=== PATIENT | male | born 1930 | race Caucasian/White ===

== ENCOUNTER 2016-07-22 11:26 | Outpatient (CLI) | payer MEDICARE | END 2016-07-22 11:27 | disposition home or self-care (01) | DX: I26.99 Other pulmonary embolism without acute cor pulmonale (principal); Z79.01 Long term (current) use of anticoagulants ==

== ENCOUNTER 2016-08-05 10:04 | Outpatient (CLI) | payer MEDICARE | END 2016-08-05 10:05 | disposition home or self-care (01) | DX: I26.99 Other pulmonary embolism without acute cor pulmonale (principal); Z79.01 Long term (current) use of anticoagulants ==

== ENCOUNTER 2016-08-19 09:10 | Outpatient (CLI) | payer MEDICARE | END 2016-08-19 09:11 | disposition home or self-care (01) | DX: I26.99 Other pulmonary embolism without acute cor pulmonale (principal); Z79.01 Long term (current) use of anticoagulants ==

== ENCOUNTER 2016-09-08 13:18 | Emergency (ER) | payer MEDICARE ==
[2016-09-08] MEDS ORDERED: ACETAMINOPHEN 325 MG TABLET PO STA (16:36)
[2016-09-08] MEDS ORDERED: ACETAMINOPHEN 325 MG TABLET PO ONE (16:55)
== END 2016-09-08 19:42 | disposition home or self-care (01) ==
DX: G45.9 Transient cerebral ischemic attack, unspecified (principal); I10 Essential (primary) hypertension; Z86.711 Personal history of pulmonary embolism; H40.9 Unspecified glaucoma; Z79.01 Long term (current) use of anticoagulants; Z79.899 Other long term (current) drug therapy
CPT/HCPCS: 36415; 70544; 70547; 70551; 80048; 85025; 85610; 85730; 93005; 93010; 99284; A9270

== ENCOUNTER 2016-09-10 10:02 | Outpatient (CLI) | payer MEDICARE | END 2016-09-10 10:03 | disposition home or self-care (01) | DX: I26.99 Other pulmonary embolism without acute cor pulmonale (principal); Z79.01 Long term (current) use of anticoagulants ==

== ENCOUNTER 2016-09-16 10:59 | Outpatient (CLI) | payer MEDICARE | END 2016-09-16 11:00 | disposition home or self-care (01) | DX: I26.99 Other pulmonary embolism without acute cor pulmonale (principal); Z79.01 Long term (current) use of anticoagulants ==

== ENCOUNTER 2016-09-16 13:49 | Outpatient (CLI) | payer MEDICARE | END 2016-09-16 13:50 | disposition home or self-care (01) | DX: G45.9 Transient cerebral ischemic attack, unspecified (principal); R47.81 Slurred speech; I77.810 Thoracic aortic ectasia; I26.99 Other pulmonary embolism without acute cor pulmonale; Z79.01 Long term (current) use of anticoagulants ==

== ENCOUNTER 2016-10-09 08:00 | Outpatient (CLI) | payer MEDICARE | END 2016-10-09 08:01 | disposition home or self-care (01) | DX: L03.031 Cellulitis of right toe (principal) ==

== ENCOUNTER 2016-10-14 10:44 | Outpatient (CLI) | payer MEDICARE | END 2016-10-14 10:45 | disposition home or self-care (01) | DX: I26.99 Other pulmonary embolism without acute cor pulmonale (principal); Z79.01 Long term (current) use of anticoagulants ==

== ENCOUNTER 2016-10-28 08:40 | Outpatient (CLI) | payer MEDICARE | END 2016-10-28 08:41 | disposition home or self-care (01) | DX: I26.99 Other pulmonary embolism without acute cor pulmonale (principal); Z79.01 Long term (current) use of anticoagulants ==

== ENCOUNTER 2016-11-09 12:00 | Emergency (ER) | payer MEDICARE ==
[2016-11-09] MEDS ORDERED: ONDANSETRON 4 MG/2 ML VIAL IVP STA (12:44)
[2016-11-09] MEDS ORDERED: HYDROmorphone 1 MG/ML SYRINGE IVP STA ×2 (12:44→15:06)
[2016-11-09] MEDS ORDERED: SODIUM CHLORIDE 0.9% 1,000 ML IV ONE (12:44)
[2016-11-09] MEDS ORDERED: ONDANSETRON 4 MG/2 ML VIAL ONE (12:59)
[2016-11-09] MEDS ORDERED: HYDROmorphone 1 MG/ML SYRINGE ONE ×2 (12:59→14:55)
[2016-11-09] MEDS ORDERED: WARFARIN 5 MG TABLET PO STA (14:30)
[2016-11-09] MEDS ORDERED: ASPIRIN CHEW 81 MG TABLET PO STA (14:30)
== END 2016-11-09 16:00 | disposition home or self-care (01) ==
DX: R47.01 Aphasia (principal); R51 Headache; G45.9 Transient cerebral ischemic attack, unspecified; I10 Essential (primary) hypertension; Z86.711 Personal history of pulmonary embolism; Z79.01 Long term (current) use of anticoagulants
CPT/HCPCS: 36415; 70450; 80053; 83690; 83735; 85025; 85610; 96374; 96375; 96376; 99284; A9270; J1170

== ENCOUNTER 2016-11-13 08:29 | Outpatient (CLI) | payer MEDICARE ==
[2016-11-13 14:38] LABS: CHOL/HDL RATIO 3.5 (<5.0); CHOLESTEROL 170 mg/dL; HDL CHOLESTEROL 48 mg/dL; LDL/HDL RATIO 1.9 (<3.6); TRIGLYCERIDES 156 mg/dL; VLDL CHOLESTEROL 31 mg/dL
== END 2016-11-13 08:30 | disposition home or self-care (01) ==
LOC: LAB.R 08:29
PROVIDERS: ATTEND Internal Medicine
DX: Z86.73 Personal history of transient ischemic attack (TIA), and cerebral infarction without residual deficits (principal)
CPT/HCPCS: 80061; 85651; 86140

== ENCOUNTER 2016-12-03 09:16 | Outpatient (CLI) | payer MEDICARE | END 2016-12-03 09:17 | disposition home or self-care (01) | DX: I26.99 Other pulmonary embolism without acute cor pulmonale (principal); Z79.01 Long term (current) use of anticoagulants ==

== ENCOUNTER 2016-12-06 15:00 | Emergency (ER) | payer MEDICARE ==
[2016-12-06 15:10] VITALS: BP 160/84
[2016-12-06] MEDS ORDERED: TRANEXAMIC ACID 1,000 MG/10 ML VIAL ONE (15:21)
--- NOTE | 2016-12-06 15:34 | ED Physician Documentation ---
PD HPI HEENT FB - Chief complaint Chief Complaint: Heent - History obtained from History obtained from: Patient, Family - History of Present Illness Location: Right ear (86yo old gentleman on warfarin was using a Q-tip earlier today and developed profuse bleeding from the right ear.) Review of Systems Ears: reports: Loss of hearing, Ear pain, Drainage/discharge Nose: denies: Rhinorrhea / runny nose, Congestion, Epistaxis Throat: denies: Sore throat PD PAST MEDICAL HISTORY - Past Medical History Cardiovascular: Hypertension, Pulmonary embolism Respiratory: None Neuro: None Endocrine/Autoimmune: None GI: None : None HEENT: Glaucoma Psych: None Musculoskeletal: None Derm: None - Past Surgical History HEENT: Cataracts - Present Medications Home Medications: Ambulatory Orders Medication Instructions Recorded Confirmed Acetaminophen [Tylenol] 500 mg PO PRN PRN 07/29/16 11/18/16 Allopurinol 300 mg PO DAILY 07/29/16 11/18/16 Calcium Citrate/Vitamin D3 600 mg PO DAILY 07/29/16 11/18/16 [Calcium Citrate - Vit D Caplet] Potassium Citrate [Potassium 10 mg PO DAILY 07/29/16 11/18/16 Citrate ER] Psyllium Husk [Metamucil] 2 cap PO DAILY 07/29/16 11/18/16 Warfarin [Coumadin] 7.5 mg PO DAILY 07/29/16 11/18/16 Lisinopril 10 mg PO BID 09/23/16 11/18/16 Metoprolol Succinate [Toprol Xl] 50 mg PO DAILY 09/23/16 11/18/16 Aspirin [Aspirin EC] 81 mg PO DAILY 11/18/16 11/18/16 Atorvastatin [Lipitor] 20 mg PO DAILY 11/18/16 11/18/16 Neomycin/Polymyx/Hc Otic Drops 4 drops OT TID #1 bottle 12/06/16 [Cortisporin Ear Susp] - Allergies Allergies/Adverse Reactions: Allergies Allergy/AdvReac Type Severity Reaction Status Date / Time No Known Drug Allergies Allergy Verified 09/08/16 13:42 - Social History Does the pt smoke?: No Smoking Status: Never smoker PD ED PE NORMAL - Vitals Vital signs reviewed: Yes - General General: Alert and oriented X 3, No acute distress - HEENT HEENT: Other (Initially I am unable to view the right TM do to blood and clots in the canal. After flushing I am able to ascertain that he has quite a bit of earwax but the tympanic membrane is normal without hemotympanum or perforation. He did abrade the canal. After flushing I instilled some TXA to prevent further bleeding.) - Neck Neck: Supple, no meningeal sign, No bony TTP - Neuro Neuro: Alert and oriented X 3, Normal speech - Psych Psych: Normal mood, Normal affect Results - Vitals Vitals: Vital Signs - 24 hr 12/06/16 15:06 Temperature 36.6 C Heart Rate 72 Respiratory 16 Rate Blood Pressure 160/84 H O2 Saturation 99 Oxygen O2 Source Room air Departure - Departure Disposition: Home, Self Care Clinical Impression: Supratherapeutic INR Ear canal abrasion Qualifiers: Encounter type: initial encounter Laterality: right Qualified Code(s): S00.411A - Abrasion of right ear, initial encounter Condition: Good Record reviewed to determine appropriate education?: Yes Prescriptions: Neomycin/Polymyx/Hc Otic Drops [Cortisporin Ear Susp] 4 drops OT TID #1 bottle Comments: Your INR today is 3.4, skip your warfarin tonight. Your blood pressure was elevated today on check in to the emergency department. This does not mean that you have hypertension, it is a common phenomenon to check into the emergency department and have elevated blood pressure. I recommend that you see your primary care physician within the week to have it rechecked when you're feeling better.
== END 2016-12-06 15:44 | disposition home or self-care (01) ==
LOC: ED 15:00
DX: S00.411A Abrasion of right ear, initial encounter (principal); X58.XXXA Exposure to other specified factors, initial encounter; Y93.E8 Activity, other personal hygiene; I26.99 Other pulmonary embolism without acute cor pulmonale; I10 Essential (primary) hypertension; Z79.01 Long term (current) use of anticoagulants; Z79.82 Long term (current) use of aspirin; R03.0 Elevated blood-pressure reading, without diagnosis of hypertension
CPT/HCPCS: 85610; 99283

== ENCOUNTER 2016-12-17 09:37 | Outpatient (CLI) | payer MEDICARE | END 2016-12-17 09:38 | disposition home or self-care (01) | LOC: LAB 09:37 | PROVIDERS: ATTEND Internal Medicine | DX: I26.99 Other pulmonary embolism without acute cor pulmonale (principal); Z79.01 Long term (current) use of anticoagulants | CPT/HCPCS: 85610 ==

== ENCOUNTER 2016-12-21 08:40 | Outpatient (CLI) | payer MEDICARE | END 2016-12-21 08:41 | disposition home or self-care (01) | LOC: LAB 08:40 | PROVIDERS: ATTEND Internal Medicine | DX: I26.99 Other pulmonary embolism without acute cor pulmonale (principal); Z86.73 Personal history of transient ischemic attack (TIA), and cerebral infarction without residual deficits; E78.2 Mixed hyperlipidemia; Z79.01 Long term (current) use of anticoagulants; Z79.899 Other long term (current) drug therapy | CPT/HCPCS: 36415; 80061; 84450; 84460; 85610; 85651; 86140 ==

== ENCOUNTER 2017-01-04 13:49 | Outpatient (CLI) | payer MEDICARE | END 2017-01-04 13:50 | disposition home or self-care (01) | LOC: LAB 13:49 | PROVIDERS: ATTEND Internal Medicine | DX: I26.99 Other pulmonary embolism without acute cor pulmonale (principal); Z79.01 Long term (current) use of anticoagulants | CPT/HCPCS: 85610 ==

== ENCOUNTER 2017-01-07 14:40 | Emergency (ER) | payer MEDICARE ==
--- NOTE | 2017-01-07 15:13 | ED Physician Documentation ---
PD HPI FOCAL NEURO - Stated complaint Stated Complaint: TIA SYMPTOMS - Chief complaint Chief Complaint: Neuro - History obtained from History obtained from: Patient - History of Present Illness Timing - onset: How many hours ago (2 hours ago at 12:30, felt some confusion, trouble concentrating, and felt difficulty talking (processing words). No focal weakness. Symptoms accompanied, followed by headache frontal. Has had similar in the past, seen by Neurology and has had MRi/MRA brain and MRA neck just few months ago with an episode. Is on COumadin for it.), Today Timing - duration: Hours (lasted abotu 1 1/2 hours, which he says is shorter than the other event he has had.) Timing - details: Abrupt onset, Now resolved Severity of deficit: Mild Weakness: No: Face, Arm, Hand, Leg, Foot, Right, Left, Other Numbness: No: Face, Arm, Hand, Leg, Foot, Right, Left, Other Associated symptoms: Headache, Other (feeling confusion and difficulty concentrating, speaking). No: Nausea / vomiting, Syncope, Head injury, Chest pain, Neck pain, Fever Contributing factors: positive: Anticoagulated. negative: Vascular dz, Atrial fibrillation Baseline status: positive: A&OX3, ambulatory, indep Similar symptoms before: No diagnosis (TIA) Review of Systems Constitutional: denies: Fever, Chills Nose: denies: Rhinorrhea / runny nose, Congestion Throat: denies: Sore throat Cardiac: denies: Chest pain / pressure, Palpitations Respiratory: denies: Dyspnea, Cough GI: denies: Abdominal Pain, Nausea, Vomiting : denies: Dysuria, Frequency Skin: denies: Rash, Lesions Musculoskeletal: denies: Neck pain, Back pain Neurologic: reports: Difficulty speaking, Confused, Headache. denies: Focal weakness, Numbness, Near syncope, Altered mental status, Head injury, LOC Psychiatric: denies: Depressed, Anxiety, Insomnia PD PAST MEDICAL HISTORY - Past Medical History Cardiovascular: Hypertension, Pulmonary embolism Respiratory: None Neuro: None Endocrine/Autoimmune: None GI: None : None HEENT: Glaucoma Psych: None Musculoskeletal: None Derm: None - Past Surgical History Past Surgical History: Yes HEENT: Cataracts - Present Medications Home Medications: Ambulatory Orders Medication Instructions Recorded Confirmed Acetaminophen [Tylenol] 500 mg PO PRN PRN 07/29/16 01/07/17 Allopurinol 300 mg PO DAILY 07/29/16 01/07/17 Calcium Citrate/Vitamin D3 600 mg PO DAILY 07/29/16 01/07/17 [Calcium Citrate - Vit D Caplet] Potassium Citrate [Potassium 10 mg PO DAILY 07/29/16 01/07/17 Citrate ER] Psyllium Husk [Metamucil] 2 cap PO DAILY 07/29/16 01/07/17 Warfarin [Coumadin] 7.5 mg PO DAILY 07/29/16 01/07/17 Lisinopril 10 mg PO BID 09/23/16 01/07/17 Metoprolol Succinate [Toprol Xl] 50 mg PO DAILY 09/23/16 01/07/17 Atorvastatin [Lipitor] 20 mg PO DAILY 11/18/16 01/07/17 Neomycin/Polymyx/Hc Otic Drops 4 drops OT TID #1 bottle 12/06/16 01/07/17 [Cortisporin Ear Susp] Brimonidine 0.15% Ophth Drops 1 drops EACHEYE DAILY 01/07/17 01/07/17 [Alphagan P 0.15% Ophth Drops] Latanoprost 1 drops EACHEYE DAILY 01/07/17 01/07/17 - Allergies Allergies/Adverse Reactions: Allergies Allergy/AdvReac Type Severity Reaction Status Date / Time No Known Drug Allergies Allergy Verified 09/08/16 13:42 - Social History Does the pt smoke?: No Smoking Status: Never smoker Does the pt drink ETOH?: No Does the pt have substance abuse?: No PD ED PE NORMAL - Vitals Vital signs reviewed: Yes - General General: Alert and oriented X 3, No acute distress, Well developed/nourished, Other - HEENT HEENT: Atraumatic, PERRL, EOMI, Ears normal, Pharynx benign - Neck Neck: Supple, no meningeal sign, No adenopathy, Thyroid normal - Cardiac Cardiac: RRR, No murmur - Respiratory Respiratory: Clear bilaterally - Abdomen Abdomen: Soft, Non tender - Back Back: No CVA TTP - Derm Derm: Normal color, Warm and dry, No rash - Extremities Extremities: No tenderness to palpate, Normal ROM s pain, No edema, No calf tenderness / cord - Neuro Neuro: Alert and oriented X 3, fuel operator 2-12 intact, No motor deficit, No sensory deficit, Normal speech, Other - Psych Psych: Normal mood, Normal affect NIHSS - Level of Consciousness Level of consciousness: (0) Alert, Keenly responsive LOC Questions: (0) Answers both Q's correct LOC Commands: (0) Performs both correctly - Gaze Best Gaze: (0) Normal - Visual Visual: (0) No loss - Facial Palsy Facial Palsy: (0) Normal, symmetrical movement - Motor Arms (both separate) Motor Arm (right): (0) No drift Motor Arm (left): (0) No drift - Motor Legs (both separate) Motor Leg (right): (0) No drift Motor Leg (left): (0) No drift - Limb Ataxia Limb Ataxia: (0) Absent - Sensory Sensory: (0) Normal - Best Language Best Language: (0) No aphasia - Dysarthria Dysarthria: (0) Normal - Extinction and Inattention (formally neg Extinction and inattention: (0) No abnormality - Total Score/Results Total Score/Result: 0 Results - Vitals Vitals: Vital Signs - 24 hr 01/07/17 16:23 Heart Rate 57 L Respiratory 16 Rate Blood Pressure 166/87 H O2 Saturation 99 Oxygen O2 Source Room air - Labs Labs: Laboratory Tests 01/07/17 01/07/17 15:00 15:00 PT 28.0 H INR 2.5 H Sodium 130 L Potassium 4.2 Chloride 94 L Carbon Dioxide 30 Anion Gap 6.0 BUN 19 Creatinine 1.0 Estimated GFR (MDRD) 71 L Glucose 88 Calcium 8.9 Total Bilirubin 0.8 AST 24 ALT 28 Alkaline Phosphatase 81 Total Protein 6.0 L Albumin 4.1 Globulin 1.9 L Albumin/Globulin Ratio 2.2 Lipase 23 - Rads (name of study) head CT Radiology: Prelim report reviewed (no acute process, no bleeding) PD MEDICAL DECISION MAKING - ED course Complexity details: considered differential (TIA symptoms and has had recent ( September/October) MRA brain and neck without demonstrable lesions nor stenoses. He is on COumadin per his Neurologist. I don't see further workup at this time, and he would prefer to go home. Main result is that his symptoms are not related to bleed. ), d/w patient, d/w family () Departure - Departure Disposition: 01 Home, Self Care Clinical Impression: TIA (transient ischemic attack) Qualifiers: Transient cerebral ischemia type: unspecified Qualified Code(s): G45.9 - Transient cerebral ischemic attack, unspecified Condition: Stable Record reviewed to determine appropriate education?: Yes Instructions: ED Transient Ischemic Attack Follow-Up: Enmanuel Reyes MD [Primary Care Provider] - Comments: Continue usual medications. Drink adequate fluids. Your BP is slightly high today; recheck it in next few days to see if back to your normal. Return if recurrent symptoms. Discharge Date/Time: 01/07/17 16:50
[2017-01-07] MEDS ORDERED: ACETAMINOPHEN 325 MG TABLET PO STA (15:38)
[2017-01-07] MEDS ORDERED: ACETAMINOPHEN 325 MG TABLET PO ONE (15:42)
[2017-01-07 16:04] LABS: INR 2.5 (0.8-1.2)
[2017-01-07 16:05] LABS: ALBUMIN/GLOBULIN RATIO 2.2 (1.0-2.2); BILIRUBIN,TOTAL 0.8 mg/dL (0.2-1.0); CALCIUM 8.9 mg/dL (8.5-10.3); POTASSIUM 4.2 mmol/L (3.5-5.0)
--- NOTE | 2017-01-07 16:10 | CT Preliminary Report ---
Exam: CT Head W/O IMPRESSION: Generalized age-related chronic changes without evidence of acute intracranial abnormalit y when compared with 11/09/2016. [facility] SITE ID: [id number]
--- NOTE | 2017-01-07 16:12 | CT Report ---
EXAM: CT HEAD EXAM DATE: 01/07/2017 03:55 PM. CLINICAL HISTORY: TIA symptoms with headache; on coumadin. COMPARISON: 11/09/2016 TECHNIQUE: Multiaxial CT images were obtained from the foramen magnum to the vertex. IV contrast: Non e. Reformats: Coronal. In accordance with CT protocol optimization, one or more of the following dose reduction techniques w ere utilized for this exam: automated exposure control, adjustment of mA and/or KV based on patient s ize, or use of iterative reconstructive technique. FINDINGS: Parenchyma: No intraparenchymal hemorrhage. No evidence of mass, midline shift, or CT findings of acu te infarction. Meyers-white differentiation is distinct. Extraaxial Spaces: Normal for age. No subdural or epidural collections identified. Extensive left ten torial calcification unchanged Ventricles: The ventricles and cortical sulci are enlarged, consistent with age-related tissue loss. Sinuses: Membrane thickening bilateral ethmoid sinuses Bones: No evidence of fracture or calvarial defect. Other: Diffuse chronic microangiopathic white matter changes are evident. IMPRESSION: Generalized age-related chronic changes without evidence of acute intracranial abnormalit y when compared with 11/09/2016. [facility] Referring Provider Line: [phone] SITE ID: [id number]
[2017-01-07 16:24] VITALS: BP 166/87
== END 2017-01-07 16:50 | disposition home or self-care (01) ==
LOC: ED 14:40
DX: G45.9 Transient cerebral ischemic attack, unspecified (principal); I10 Essential (primary) hypertension; Z86.711 Personal history of pulmonary embolism; Z79.01 Long term (current) use of anticoagulants
CPT/HCPCS: 36415; 70450; 80053; 83690; 85610; 99284; A9270

== ENCOUNTER 2017-01-27 08:58 | Outpatient (CLI) | payer MEDICARE | END 2017-01-27 08:59 | disposition home or self-care (01) | LOC: LAB 08:58 | PROVIDERS: ATTEND Internal Medicine | DX: I26.99 Other pulmonary embolism without acute cor pulmonale (principal); Z79.01 Long term (current) use of anticoagulants | CPT/HCPCS: 85610 ==

== ENCOUNTER 2017-02-02 16:52 | Outpatient (CLI) | payer MEDICARE ==
--- NOTE | 2017-02-03 00:18 | Ultrasound Report ---
EXAM: BILATERAL LOWER EXTREMITY VENOUS ULTRASOUND EXAM DATE: 02/02/2017 05:52 PM. CLINICAL HISTORY: Pulmonary emboli COMPARISON: None. TECHNIQUE: Real-time sonographic vascular imaging was performed by the counter clerk through the lower extremities utilizing both color-flow and Doppler spectral analysis. Multiple sales representatives static i mages were saved for review. FINDINGS: Right: Common Femoral Vein (CFV): Normal. CFV-GSV Junction: Normal. Profunda Femoral Vein (PFV): Normal. Femoral Vein (FV) Prox: Normal. Femoral Vein (FV) Mid: Normal. Femoral Vein (FV) Dist: Normal. Popliteal Vein: Normal. Posterior Tibial Veins: Normal. Peroneal Veins: Normal. Left: Common Femoral Vein (CFV): Normal. CFV-GSV Junction: Normal. Profunda Femoral Vein (PFV): Normal. Femoral Vein (FV) Prox: Normal. Femoral Vein (FV) Mid: Normal. Femoral Vein (FV) Dist: Normal. Popliteal Vein: Normal. Posterior Tibial Veins: Normal. Peroneal Veins: Normal. Other: None. IMPRESSION: No evidence for deep venous thrombosis bilaterally. [facility] Referring Provider Line: [phone] SITE ID: [id number]
== END 2017-02-02 16:53 | disposition home or self-care (01) ==
LOC: DI 16:52
PROVIDERS: ATTEND Internal Medicine
DX: I26.99 Other pulmonary embolism without acute cor pulmonale (principal)
CPT/HCPCS: 93970

== ENCOUNTER 2017-02-10 09:16 | Outpatient (CLI) | payer MEDICARE | END 2017-02-10 09:17 | disposition home or self-care (01) | LOC: LAB 09:16 | PROVIDERS: ATTEND Internal Medicine | DX: I26.99 Other pulmonary embolism without acute cor pulmonale (principal); Z79.01 Long term (current) use of anticoagulants | CPT/HCPCS: 85610 ==

== ENCOUNTER 2017-02-22 08:08 | Outpatient (CLI) | payer MEDICARE ==
[2017-02-24 22:11] LABS: TEST RESULT REPORT (())
[2017-02-26 00:16] LABS: TEST RESULT REPORT (())
[2017-02-26 12:46] LABS: TEST RESULT REPORT (())
[2017-03-01 12:06] LABS: TEST RESULT REPORT (())
== END 2017-02-22 08:09 | disposition home or self-care (01) ==
LOC: LAB 08:08
PROVIDERS: ATTEND Internal Medicine
DX: I26.99 Other pulmonary embolism without acute cor pulmonale (principal)
CPT/HCPCS: 81240; 81241; 81599; 85300; 85303; 85306

== ENCOUNTER 2017-03-16 10:33 | Outpatient (CLI) | payer MEDICARE ==
--- NOTE | 2017-03-16 13:13 | XRAY Report ---
COMPLETE SKULL: 03/16/2017 CLINICAL INDICATION: Multiple myeloma. FINDINGS: AP, Lavelle's, lateral views of the skull demonstrate no evidence of lytic lesion. The sinu ses appear unremarkable. IMPRESSION: NORMAL SKULL RADIOGRAPHS. NO EVIDENCE OF LYTIC LESIONS TYPICAL OF MULTIPLE MYELOMA. JOB #: [id number] EXT JOB #:[id number]
== END 2017-03-16 10:34 | disposition home or self-care (01) ==
LOC: DI 10:33
PROVIDERS: ATTEND Internal Medicine
DX: C90.00 Multiple myeloma not having achieved remission (principal)
CPT/HCPCS: 70260

== ENCOUNTER 2017-04-09 09:13 | Outpatient (CLI) | payer MEDICARE ==
--- NOTE | 2017-04-09 11:48 | XRAY Report ---
SKELETAL SURVEY: 04/09/2017 CLINICAL INDICATION: Multiple myeloma. FINDINGS: Skeletal survey, comprised of lateral skull, frontal chest, frontal and lateral spine, fro ntal pelvis, frontal upper and lower proximal extremities was performed. There are innumerable tiny lytic foci in the skull, lytic foci in the left clavicle, bilateral humeri, bilateral femurs, compati ble with multiple myeloma. Extensive degenerative changes are noted in the spine, and there is a chr onic-appearing compression fracture of T10. IMPRESSION: WIDESPREAD LYTIC LESIONS, COMPATIBLE WITH MULTIPLE MYELOMA. DEGENERATIVE CHANGES. PRODUCTION PACKAGER TERRELL COMPRESSION FRACTURE OF T10. JOB #: [id number] EXT JOB #:[id number]
== END 2017-04-09 09:14 | disposition home or self-care (01) ==
LOC: DI 09:13
PROVIDERS: ATTEND Internal Medicine
DX: C90.00 Multiple myeloma not having achieved remission (principal); M47.9 Spondylosis, unspecified
CPT/HCPCS: 77075

== ENCOUNTER 2017-07-21 04:21 | Observation (INO) | payer MEDICARE ==
[2017-07-21] MEDS ORDERED: ASPIRIN CHEW 81 MG TABLET PO STA (04:36)
--- NOTE | 2017-07-21 04:36 | ED Physician Documentation ---
PD HPI CHEST PAIN - Stated complaint Stated Complaint: CHEST PAIN,SOA - Chief complaint Chief Complaint: Cardiac - History obtained from History obtained from: Patient, Family - History of Present Illness Timing - onset: Today Timing - onset during: Rest Timing - details: Abrupt onset, Still present Quality: Pressure Location: Left chest Radiation: Neck Improved by: Rest Associated symptoms: Shortness of air. No: Diaphoresis, Nausea, Vomiting, Feeling faint / dizzy Similar symptoms before: No diagnosis Recently seen: Not recently seen - Additional information Additional information: Patient is an 87 year old male with a history of Multiple myeloma and multiple other co morbidities who is presenting to the emergency department for chest pain and shortness of breath. according to patient and his for the last three days he has felt progressively more short of breath and it gets worse with exertion. This morning patient was woken up with chest pain that radiates to his left neck. Review of Systems Constitutional: denies: Fever, Chills Eyes: reports: Reviewed and negative Ears: reports: Reviewed and negative Nose: denies: Congestion Throat: denies: Sore throat Cardiac: reports: Chest pain / pressure. denies: Palpitations Respiratory: reports: Dyspnea. denies: Wheezing GI: denies: Nausea, Vomiting Skin: denies: Rash, Lesions Neurologic: denies: Generalized weakness, Focal weakness, Altered mental status , Headache, LOC Psychiatric: denies: Depressed Immunocompromised: denies: Immunocompromised PD PAST MEDICAL HISTORY - Past Medical History Cardiovascular: Hypertension, Pulmonary embolism Respiratory: None Neuro: None Endocrine/Autoimmune: None GI: None : None HEENT: Glaucoma Psych: None Musculoskeletal: None Derm: None - Past Surgical History Past Surgical History: Yes HEENT: Cataracts - Present Medications Home Medications: Ambulatory Orders Medication Instructions Recorded Confirmed Acetaminophen [Tylenol] 500 mg PO PRN PRN 07/29/16 07/21/17 Allopurinol 300 mg PO DAILY 07/29/16 07/21/17 Psyllium Husk [Metamucil] 2 cap PO DAILY 07/29/16 07/21/17 Lisinopril 10 mg PO BID 09/23/16 07/21/17 Metoprolol Succinate [Toprol Xl] 50 mg PO DAILY 09/23/16 07/21/17 Atorvastatin [Lipitor] 20 mg PO DAILY 11/18/16 07/21/17 Brimonidine 0.15% Ophth Drops 1 drops EACHEYE DAILY 01/07/17 07/21/17 [Alphagan P 0.15% Ophth Drops] Latanoprost 1 drops EACHEYE DAILY 01/07/17 07/21/17 Aspirin 81 mg PO DAILY 07/21/17 07/21/17 Clopidogrel [Plavix] 75 mg PO ONCE 07/21/17 07/21/17 - Allergies Allergies/Adverse Reactions: Allergies Allergy/AdvReac Type Severity Reaction Status Date / Time No Known Drug Allergies Allergy Verified 07/21/17 04:31 - Social History Does the pt smoke?: No Smoking Status: Never smoker Does the pt drink ETOH?: No Does the pt have substance abuse?: No PD ED PE NORMAL - General General: Alert and oriented X 3 - HEENT HEENT: Atraumatic, PERRL - Neck Neck: No JVD - Cardiac Cardiac: No murmur - Abdomen Abdomen: Soft, Non tender, Non distended - Extremities Extremities: No deformity, No edema - Neuro Neuro: Alert and oriented X 3, No motor deficit, No sensory deficit, Normal speech - Psych Psych: Normal mood PD ED PE EXPANDED - Cardiac Cardiac: Abnormal Rhythm - Derm Derm: Bruising Results - Vitals Vitals: Vital Signs - 24 hr 07/21/17 07/21/17 04:24 05:27 Temperature 36.0 C L Heart Rate 59 L 57 L Respiratory 13 10 L Rate Blood Pressure 208/101 H 186/91 H O2 Saturation 100 99 Oxygen O2 Source Room air - EKG (time done) 0427 Rate: Rate (enter#) (61) [place]: LAD, Anterior hemiblock Intervals: Prolonged VA QRS: Poor R wave progression Ischemia: Non specific changes Compare to prior EKG: Unchanged from prior EKG - Labs Labs: Laboratory Tests 07/21/17 07/21/17 07/21/17 04:27 04:27 04:27 WBC 7.7 RBC 4.45 L Hgb 13.5 L Hct 40.6 L MCV 91.2 MCH 30.4 MCHC 33.4 RDW 13.5 Plt Count 142 MPV 8.4 Neut # 5.0 Lymph # 1.4 L Drew # 0.8 Eos # 0.4 Baso # 0.0 Absolute Nucleated RBC 0.00 Nucleated RBC % 0.0 PT 10.3 INR 0.9 APTT 27.6 Sodium 131 L Potassium 4.4 Chloride 98 L Carbon Dioxide 26 Anion Gap 7.0 BUN 20 Creatinine 1.1 Estimated GFR (MDRD) 63 L Glucose 99 Calcium 9.1 Phosphorus 4.0 Magnesium 1.8 Total Bilirubin 0.6 AST 25 ALT 33 Alkaline Phosphatase 84 Troponin I B-Natriuretic Peptide Total Protein 6.8 Albumin 4.4 Globulin 2.4 Albumin/Globulin Ratio 1.8 Lipase 18 L 07/21/17 07/21/17 04:27 04:27 WBC RBC Hgb Hct MCV MCH MCHC RDW Plt Count MPV Neut # Lymph # Drew # Eos # Baso # Absolute Nucleated RBC Nucleated RBC % PT INR APTT Sodium Potassium Chloride Carbon Dioxide Anion Gap BUN Creatinine Estimated GFR (MDRD) Glucose Calcium Phosphorus Magnesium Total Bilirubin AST ALT Alkaline Phosphatase Troponin I < 0.04 B-Natriuretic Peptide 143 H Total Protein Albumin Globulin Albumin/Globulin Ratio Lipase - Rads (name of study) CT angio Radiology: Final report received (no PE), See rad report PD MEDICAL DECISION MAKING - ED course Complexity details: reviewed old records, reviewed results, re-evaluated patient , considered differential, d/w patient, d/w family, d/w decorator consultant ED course: Patient was seen and examined at bedside. IV access was gained and labs were drawn. ekg was performed and showed no acute ischemic changes. Due to patient' s previous history ct angio was ordered. patient was treated with aspirin and nitro was ordered. When patient returned from imaging the results were reviewed. there was no PE but patient did have coronary calcifications. Patient had a HEART score of 5 and was appropriate for observation. Hospitalist was contacted and the case was discussed with her. Patient was placed in observation for further care. Departure - Departure Disposition: ED Place in Observation Clinical Impression: Chest pain Condition: Stable
[2017-07-21 04:47] LABS: BASOPHILS % (AUTO) 0.3 %; EOSINOPHILS # (AUTO) 0.4 10^3/uL (0.0-0.7); EOSINOPHILS % (AUTO) 5.2 %; HGB - HEMOGLOBIN 13.5 g/dL (14.0-18.0); LYMPHOCYTES # (AUTO) 1.4 10^3/uL (1.5-3.5); LYMPHOCYTES % (AUTO) 18.6 %; MEAN CORPUSCULAR HEMOGLOBIN 30.4 pg (27.0-31.0); MEAN CORPUSCULAR HGB CONC 33.4 g/dL (32.0-36.0); MEAN CORPUSCULAR VOLUME 91.2 fL (80.0-94.0); MEAN PLATELET VOLUME 8.4 fL (7.4-11.4); MONOCYTES # (AUTO) 0.8 10^3/uL (0.0-1.0); MONOCYTES % (AUTO) 10.4 %; NEUTROPHILS % (AUTO) 65.5 %; PLT - PLATELET COUNT 142 10^3/uL (130-450); RED BLOOD COUNT 4.45 10^6/uL (4.70-6.10); RED CELL DISTRIBUTION WIDTH 13.5 % (12.0-15.0); WHITE BLOOD COUNT 7.7 x10^3/uL (4.8-10.8)
[2017-07-21 04:51] LABS: INR 0.9 (0.8-1.2); PT - PROTHROMBIN TIME 10.3 secs (9.9-12.6)
[2017-07-21 04:56] LABS: ALBUMIN 4.4 g/dL (3.2-5.5); ALBUMIN/GLOBULIN RATIO 1.8 (1.0-2.2); BILIRUBIN,TOTAL 0.6 mg/dL (0.2-1.0); CALCIUM 9.1 mg/dL (8.5-10.3); CREATININE 1.1 mg/dL (0.6-1.2); MAGNESIUM 1.8 mg/dL (1.7-2.8); TOTAL PROTEIN 6.8 g/dL (6.7-8.2)
[2017-07-21] MEDS ORDERED: NITROGLYCERIN SL 0.4 MG TABLET SL STA (05:02)
[2017-07-21] MEDS ORDERED: IOPAMIDOL-300 100 ML VIAL ONE (05:07)
[2017-07-21] MEDS ORDERED: IOPAMIDOL-300 100 ML VIAL IVP ONE (05:24)
--- NOTE | 2017-07-21 05:40 | CT Report ---
EXAM: CT ANGIOGRAM CHEST EXAM DATE: 07/21/2017 05:27 AM. CLINICAL HISTORY: Chest pressure and shortness of breath. History of pulmonary embolism. COMPARISON: None. TECHNIQUE: Routine helical imaging was performed through the chest in the pulmonary arterial phase. I V Contrast: Nonionic. Reconstructions: Coronal 3-D MIP reconstructions.Sagittal and coronal. In accordance with CT protocol optimization, one or more of the following dose reduction techniques w ere utilized for this exam: automated exposure control, adjustment of mA and/or KV based on patient s ize, or use of iterative reconstructive technique. FINDINGS: Pulmonary Arteries: Diagnostic quality: Adequate through the segmental arteries. No evidence for acute or chronic pulmona ry emboli. No evidence of right heart strain. Lungs/Pleura: Emphysematous changes. Mild bibasilar atelectasis. No jordi alveolar consolidation or p leural effusion. No pneumothorax. Mediastinum: Mild cardiomegaly. Coronary artery calcifications. Normal sized mediastinal lymph nodes. Thoracic Aorta: Dilated ascending aorta measuring 4.2 cm. Mild atherosclerosis. No aortic dissection seen. Upper Abdomen: Unremarkable. Other: Osteopenia. Degenerative changes in the spine. Lytic foci in the skeleton of uncertain chronic ity. Metastatic disease or multiple myeloma not excluded. IMPRESSION: 1. No pulmonary emboli seen. 2. Emphysema with mild cardiomegaly and coronary artery calcifications. 3. Dilated ascending aorta. No aortic dissection. 4. Scattered lytic foci in the bones of uncertain etiology and chronicity. Cannot exclude metastatic disease or multiple myeloma. [facility] Referring Provider Line: [phone] SITE ID: [id number]
[2017-07-21] MEDS ORDERED: SODIUM CHLORIDE FLUSH 0.9% 10 ML SYRINGE IVP PRN (07:51)
[2017-07-21] MEDS ORDERED: TEMAZEPAM 15 MG CAPSULE PO PRN (07:51)
[2017-07-21] MEDS ORDERED: oxyCODONE 5 MG TABLET PO PRN (07:51)
[2017-07-21] MEDS ORDERED: PROCHLORPERAZINE 10 MG/2 ML VIAL IVP PRN (07:51)
[2017-07-21] MEDS ORDERED: CLOPIDOGREL 75 MG TABLET PO SCH (08:00)
[2017-07-21] MEDS ORDERED: NITROGLYCERIN SL 0.4 MG TABLET SL PRN (08:01)
--- NOTE | 2017-07-21 08:07 | HISTORY & PHYSICAL EXAMINATION ---
Chief Complaint - Chief Complaint Chief Complaint: chest pain History of Present Illness - Admitted From Admitted From:: [facility] - History of Present Illness HPI Comment/Other: Tristan Barnett is a very pleasant 87-year-old male who has been experiencing chest pain and shortness of breath for the last 2-3 days. He says he has been feeling "heaviness" in his chest and that both the chest heaviness and shortness of breath have been worsening every day. He awoke at 3 AM today with the pain now radiating into his left neck and decided to come to the emergency room. EKG shows some minor T-wave changes in aVL, but is otherwise negative and the first set of troponins were negative as well. History - Past Medical History Cardiovascular: reports: Hypertension, Pulmonary embolism Respiratory: reports: None Neuro: reports: None Endocrine/Autoimmune: reports: None GI: reports: None : reports: None HEENT: reports: Glaucoma Psych: reports: None Musculoskeletal: reports: None Derm: reports: None MRSA Hx?: No - Past Surgical History Ortho: reports: Other (Surgical repair of nerve impingement in the top of his foot) HEENT: reports: Cataracts - Family & Social History Family History: Mother: (Mother from suicide), Father: , CAD, Hyperlipidemia, Hypertension, OR, Brother: , CAD, Hyperlipidemia, Hypertension, OR Living arrangement: At home Living Situation: With spouse/s.o. - Substance History Use: Uses substance without health or social issues: NONE - POLST Patient has POLST: No POLST Status: DNR (Patient requests DNR status; will do a ACP later today.) Meds/Allgy - Home Medications Home Medications: Ambulatory Orders Medication Instructions Recorded Confirmed Acetaminophen [Tylenol] 500 mg PO PRN PRN 07/29/16 07/21/17 Allopurinol 300 mg PO DAILY 07/29/16 07/21/17 Psyllium Husk [Metamucil] 2 cap PO DAILY 07/29/16 07/21/17 Lisinopril 10 mg PO BID 09/23/16 07/21/17 Metoprolol Succinate [Toprol Xl] 50 mg PO DAILY 09/23/16 07/21/17 Atorvastatin [Lipitor] 20 mg PO DAILY 11/18/16 07/21/17 Brimonidine 0.15% Ophth Drops 1 drops EACHEYE DAILY 01/07/17 07/21/17 [Alphagan P 0.15% Ophth Drops] Latanoprost 1 drops EACHEYE DAILY 01/07/17 07/21/17 Aspirin 81 mg PO DAILY 07/21/17 07/21/17 Clopidogrel [Plavix] 75 mg PO ONCE 07/21/17 07/21/17 - Allergies Allergies/Adverse Reactions: Allergies Allergy/AdvReac Type Severity Reaction Status Date / Time No Known Drug Allergies Allergy Verified 07/21/17 04:31 Exam - Vital Signs Vital Signs: Vital Signs x48h Temp Pulse Resp BP Pulse Ox 07/21/17 07:05 36.5 C 56 L 16 181/87 H 100 Conclusion/Plan - Lab Results Fish Bones: 07/21/17 04:27 07/21/17 04:27
--- NOTE | 2017-07-21 08:15 | HISTORY & PHYSICAL EXAMINATION ---
Chief Complaint - Chief Complaint Chief Complaint: Chest pain History of Present Illness - Admitted From Admitted From:: Home - History of Present Illness HPI Comment/Other: Tristan Barnett is a very pleasant 87-year-old male who has been experiencing chest pain and shortness of breath for the last 2-3 days. He says he has been feeling "heaviness" in his chest and that both the chest heaviness and shortness of breath have been worsening every day. He awoke at 3 AM today with the pain now radiating into his left neck and decided to come to the emergency room. EKG showed some minor T-wave changes in aVL and the first set of troponins were negative. History - Past Medical History Cardiovascular: reports: Hypertension, Pulmonary embolism Respiratory: reports: None Neuro: reports: None Endocrine/Autoimmune: reports: None GI: reports: None : reports: None HEENT: reports: Glaucoma Psych: reports: None Musculoskeletal: reports: None Derm: reports: None MRSA Hx?: No - Past Surgical History Ortho: reports: Amputation (Traumatic amputation of left thumb), Other ( Surgical repair of nerve impingement in the top of his foot) HEENT: reports: Cataracts - Family & Social History Family History: Mother: (Mother from suicide), Father: , CAD, Hyperlipidemia, Hypertension, NM, Brother: , CAD, Hyperlipidemia, Hypertension, NM Living arrangement: At home Living Situation: With spouse/s.o. - Substance History Use: Uses substance without health or social issues: NONE - POLST Patient has POLST: No POLST Status: DNR (Patient requests DNR status; will do a ACP later today.) Meds/Allgy - Home Medications Home Medications: Ambulatory Orders Medication Instructions Recorded Confirmed Acetaminophen [Tylenol] 500 mg PO PRN PRN 07/29/16 07/21/17 Allopurinol 300 mg PO DAILY 07/29/16 07/21/17 Psyllium Husk [Metamucil] 2 cap PO DAILY 07/29/16 07/21/17 Lisinopril 10 mg PO BID 09/23/16 07/21/17 Metoprolol Succinate [Toprol Xl] 50 mg PO DAILY 09/23/16 07/21/17 Atorvastatin [Lipitor] 20 mg PO DAILY 11/18/16 07/21/17 Brimonidine 0.15% Ophth Drops 1 drops EACHEYE DAILY 01/07/17 07/21/17 [Alphagan P 0.15% Ophth Drops] Latanoprost 1 drops EACHEYE DAILY 01/07/17 07/21/17 Aspirin 81 mg PO DAILY 07/21/17 07/21/17 Clopidogrel [Plavix] 75 mg PO ONCE 07/21/17 07/21/17 - Allergies Allergies/Adverse Reactions: Allergies Allergy/AdvReac Type Severity Reaction Status Date / Time No Known Drug Allergies Allergy Verified 07/21/17 04:31 Review of Systems - Constitutional Constitutional: denies: Fever, Chills, Malaise, Diaphoresis, Night sweats - Eyes Eyes: denies: Pain, Irritation, Blurred vision, Dipolpia - Ears, Nose & Throat Ears, Nose & Throat: denies: Ear pain, Hearing loss, Hearing aids, Tinnitus, Vertigo, Nasal pain, Nasal discharge - Cardiovascular Cariovascular: reports: Chest pain, Exertional dyspnea, Decr. exercise tolerance. denies: Palpitations, Edema, Syncope, Orthopnea - Respiratory Respiratory: reports: SOB with exertion. denies: Cough, Sputum production, Wheezing, Hemoptysis, Orthopnea - Gastrointestinal Gastrointestinal: denies: Abdominal pain, Abdominal distention, Constipation, Diarrhea, Change in bowel habits, Rectal bleeding - Genitourinary Genitourinary: denies: Dysuria, Frequency, Urgency, Hematuria - Musculoskeletal Musculoskeletal: denies: Muscle pain, Back pain, Muscle aches, Stiffness - Integumentary Integumentary: denies: Rash, Pruritis, Lesions, Dryness - Neurological Neurological: denies: General weakness, Focal weakness, Headache, Dizziness - Psychiatric Psychiatric: denies: Depression, Anxiety, Suicidal, Hallucinations - Endocrine Endocrine: denies: Polyuria, Polydypsia, Polyphagia - Hematologic/Lymphatic Hematologic/Lymphatic: denies: Anemia, Bruising, Petechiae, Lymphadenopathy - All Other Systems All Other Systems: reports: Reviewed and negative Exam - Vital Signs Reviewed Vital Signs: Yes Vital Signs: Vital Signs x48h Temp Pulse Resp BP Pulse Ox 07/21/17 07:05 36.5 C 56 L 16 181/87 H 100 - Physical Exam General Appearance: positive: No acute distress, Alert Eyes Bilateral: positive: Normal inspection, PERRL, EOMI, No lid inflammation, Conjunctivae nml ENT: positive: ENT inspection nml, Pharynx nml, No signs of dehydration Neck: positive: Nml inspection, Thyroid nml, No JVD, Trachea midline. negative : Thyromegaly Respiratory: positive: Chest non-tender, No respiratory distress, Breath sounds nml. negative: Wheezes, Rales, Rhonchi Cardiovascular: positive: Regular rate & rhythm, No murmur, No gallop Peripheral Pulses: positive: 1+ Abdomen: positive: Non-tender, No organomegaly, Nml bowel sounds, No distention. negative: Guarding, Rebound Back: positive: Nml inspection. negative: CVA tenderness (R), CVA tenderness (L ) Skin: positive: Color nml, No rash, Warm, Dry Extremities: positive: Non-tender, Full ROM, Nml appearance Neurologic/Psychiatric: positive: Oriented x3, CN's nml (2-12), Motor nml, Sensation nml, Mood/affect nml Conclusion/Plan - Problem List (1) Chest pain Conclusion/Plan: We will continue with the serial troponins, supplemental oxygen and nitrates as needed. If the patient clears 3 sets of troponins we will discharge him home to follow-up with outpatient cardiology for possible stress testing.We will continue with the patient's home aspirin and Plavix. (2) HTN (hypertension) Conclusion/Plan: Continue with metoprolol and lisinopril. (3) Glaucoma Conclusion/Plan: Continue with the patient's current medication regimen. - Lab Results Lab results reviewed: Yes Juan Pablo Bones: 07/21/17 04:27 07/21/17 04:27 - EKG Results EKG Interpreted Independently: Yes EKG Comparison: Old EKG unavailable Core Measures - Anticipated LOS I expect patient to be DC'd or transferred within 96 hours.: Yes - DVT/VTE - Prophylaxis VTE/DVT Device ordered at admit?: Yes - AMI - Statin at Admit Aspirin Prescribed on Admit: Yes
[2017-07-21] MEDS ORDERED: LISINOPRIL 5 MG TABLET PO SCH (09:00)
[2017-07-21] MEDS ORDERED: LATANOPROST 0.005% OPHTH DROPS EACHEYE SCH (09:00)
[2017-07-21] MEDS ORDERED: PSYLLIUM PACKET PO SCH (09:00)
[2017-07-21] MEDS ORDERED: POLYETHYLENE GLYCOL 3350 17 GM PACKET PO SCH (09:00)
[2017-07-21] MEDS ORDERED: BRIMONIDINE 0.15% OPHTH DROPS 5 ML EACHEYE SCH (09:00)
[2017-07-21] MEDS ORDERED: ALLOPURINOL 100 MG TABLET PO SCH (09:00)
[2017-07-21] MEDS ORDERED: ASPIRIN CHEW 81 MG TABLET PO SCH (09:00)
[2017-07-21] MEDS ORDERED: METOPROLOL SUCCINATE 50 MG TABLET PO SCH (09:00)
[2017-07-21] MEDS ORDERED: SODIUM CHLORIDE FLUSH 0.9% 10 ML SYRINGE IVP SCH (14:00)
[2017-07-21 17:24] VITALS: BP 185/85
--- NOTE | 2017-07-21 20:13 | Discharge Plan ---
Discharge Plan Disposition: Home, Self Care Condition: Stable Prescriptions: Nitroglycerin [Nitrostat] 0.4 mg SL Q5MIN PRN #100 tablet PRN Reason: Chest Pain Amlodipine Besylate [Norvasc] 2.5 mg PO DAILY #30 tablet Diet: Cardiac Activity Restrictions: No strenuous activity until you aree seen by your doctor or a Fiction And Nonfiction Author Shower Restrictions: No Driving Restrictions: No Instruction Topics: Angina, Nitroglycerin Fast Acting Additional Instructions or Follow Up instructions: See your doctor (or a Cardiologist0 for outpatient cardiac testing (you will need a stress test or non-walking stress test) to evaluate the cause of the shortness of breath and chest pain. Start taking new prescription Amlodipine daily, for better BP control and coronary vasodilatation A prescription for Nitroglycerine has also been ordered for you. Use it if you get chest pain by letting it dissolve under your tongue. If the pain is not relieved even after 3 tablets taken 5-10 min. apart, call 911 or have someone bring you to the ER. Resume all your other medications. No Smoking: If you smoke, Please STOP! Call for help. Follow-up with: Enmanuel Reyes MD [Primary Care Provider] -
[2017-07-21] MEDS ORDERED: ATORVASTATIN 10 MG TABLET PO SCH (21:00)
--- NOTE | 2017-07-21 21:30 | DISCHARGE SUMMARY ---
DATE OF SERVICE: 07/21/2017 Physician: Kait Greene MD DATE OF ADMISSION: 07/21/2017 DATE OF DISCHARGE: 07/21/2017 DATE OF ADMISSION: 07/21/2017. DATE OF DISCHARGE: 07/21/2017. This is an 87-year-old white male with a history of hypertension and family history of coronary disease. The patient also has a history of remote pulmonary embolism and cataracts. The patient presented with a 3-day history of shortness of breath with activity and awoke at 3 a.m. with chest pain with radiation to the left neck. He was noted to have minor T- wave changes in lead aVL only and admitted for workup of these symptoms. HOSPITAL COURSE AND DISCHARGE DIAGNOSES: 1. Chest pain. The patient had 3 troponins that were all undetected (less than 0.04). He had no further chest pain or shortness of breath with only walking in his room. He was discharged in stable condition with new Norvasc 2.5 mg p.o. daily, as well as new Sublingual nitroglycerin p.r.n. and advised to see his doctor or a wireless sales consultant for further outpatient testing including a stress test since his likelihood of CAD is moderate to high. He was advised to not undertake strenuous activity until cleared by his doctor, after the above workup is done. 2. Hypertension. The patient's blood pressure was uncontrolled throughout this course with values such as 180/80. For this reason also amlodipine 2.5 mg p.o. daily was begun at the time of discharge. 3. Shortness of breath. A CTA of the chest was done at admission and this showed no pulmonary embolism. 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 The lungs and pleura on this exam had no consolidation or pleural effusion and mild bibasilar atelectasis. CONDITION AT DISCHARGE: Stable. LABS AND IMAGING: reviewed and summarized above. PHYSICAL EXAMINATION AT DISCHARGE: VITAL SIGNS: Blood pressure 185/85, heart rate 60 in sinus rhythm, unremarkable exam with no murmur or gallop on cardiac exam and clear lung reynolds. DISCHARGE MEDICATIONS: At the time of discharge. 1. Multivitamin daily. 2. Psyllium. 3. Metamucil powder daily. 4. Toprol-XL 100 mg p.o. daily. 5. Lisinopril 10 mg p.o. b.i.d. 6. Latanoprost eyedrops every evening. 7. Plavix 75 mg p.o. daily. 8. Alphagan eyedrops daily. 9. Lipitor 20 mg at bedtime. 10. Baby aspirin p.o. daily. 11. Allopurinol 300 mg p.o. daily. 12. A new prescription for amlodipine 2.5 mg p.o. daily and 13. A new prescription for sublingual nitroglycerin 0.4 mg p.r.n. chest pain. FOLLOWUP: Primary doctor and/or wireless sales consultant for further testing regarding chest pain and shortness of breath. CODE STATUS: FULL CODE. Time required to complete this entire discharge: 25 minutes. TD: 07/21/2017 22:29 MTDD
== END 2017-07-21 20:35 | disposition home or self-care (01) ==
LOC: ED 04:21 → MS2 06:37
PROVIDERS: ADMIT Hospitalist; ATTEND Internal Medicine
DX: R07.9 Chest pain, unspecified (principal); J43.9 Emphysema, unspecified; I25.10 Atherosclerotic heart disease of native coronary artery without angina pectoris; I11.9 Hypertensive heart disease without heart failure; I77.810 Thoracic aortic ectasia; C90.01 Multiple myeloma in remission; H40.9 Unspecified glaucoma; Z86.711 Personal history of pulmonary embolism; Z79.82 Long term (current) use of aspirin; Z79.02 Long term (current) use of antithrombotics/antiplatelets; Z82.49 Family history of ischemic heart disease and other diseases of the circulatory system
CPT/HCPCS: 36415; 71275; 80053; 83690; 83735; 83880; 84100; 84484; 85025; 85610; 85730; 93005; 99284; 99285; A9270; G0378; Q9967

== ENCOUNTER 2017-07-23 03:46 | Emergency (ER) | payer MEDICARE ==
[2017-07-23 04:31] LABS: BASOPHILS # (AUTO) 0.1 10^3/uL (0.0-0.1); BASOPHILS % (AUTO) 0.9 %; EOSINOPHILS # (AUTO) 0.4 10^3/uL (0.0-0.7); EOSINOPHILS % (AUTO) 5.7 %; LYMPHOCYTES # (AUTO) 1.2 10^3/uL (1.5-3.5); LYMPHOCYTES % (AUTO) 18.2 %; MEAN CORPUSCULAR HEMOGLOBIN 30.5 pg (27.0-31.0); MEAN CORPUSCULAR HGB CONC 35.1 g/dL (32.0-36.0); MEAN CORPUSCULAR VOLUME 86.8 fL (80.0-94.0); MONOCYTES # (AUTO) 0.7 10^3/uL (0.0-1.0); MONOCYTES % (AUTO) 10.5 %; NEUTROPHILS # (AUTO) 4.1 10^3/uL (1.5-6.6); NEUTROPHILS % (AUTO) 64.7 %; PLT - PLATELET COUNT 143 10^3/uL (130-450); RED BLOOD COUNT 4.27 10^6/uL (4.70-6.10); RED CELL DISTRIBUTION WIDTH 13.9 % (12.0-15.0); WHITE BLOOD COUNT 6.4 x10^3/uL (4.8-10.8)
--- NOTE | 2017-07-23 04:37 | XRAY Report ---
EXAM: CHEST RADIOGRAPHY EXAM DATE: 07/23/2017 04:23 AM. CLINICAL HISTORY: Chest pain. COMPARISON: None. TECHNIQUE: 2 views. FINDINGS: Lungs/Pleura: Large lung volumes. No alveolar consolidation or pleural effusion seen. No pneumothorax . Mediastinum: Heart size is normal. Tortuous atherosclerotic aorta. Other: Old bilateral rib fractures. Moderate to severe vertebral body fracture at approximately T9. IMPRESSION: 1. Large lung volumes. No acute abnormality seen. [facility] Referring Provider Line: [phone] SITE ID: [id number]
--- NOTE | 2017-07-23 04:38 | ED Physician Documentation ---
PD HPI CHEST PAIN - Stated complaint Stated Complaint: CHEST PAIN - Chief complaint Chief Complaint: Cardiac - History obtained from History obtained from: Patient, Family - History of Present Illness Timing - onset: How many days ago (3) Timing - onset during: Sleep, Rest Timing - details: Intermittant, Waxing and waning Quality: Pressure, Tightness Location: Substernal, Left chest Radiation: Jaw, Neck Improved by: Nitro Associated symptoms: Shortness of air. No: Diaphoresis, Nausea, Feeling faint / dizzy Similar symptoms before: Work up / diagnostics, Treatment Recently seen: Emergency Dept, Admitted - Additional information Additional information: Patient is an 87 year old male with a history of htn, dyslipidemia and prior pe who is presenting to the emergency department for chest pain. Patient was in the emergency department two days prior and patient was placed in observation. Serial troponins were negative and patient was sent home and told to schedule a stress test. patient states that he had chest pain that woke him up from sleep. Patient states that he took some nitro and the symptoms improved. Patient reports that he was woken up from sleep again with chest pain so he decided to come to the emergency department for evaluation. Review of Systems Constitutional: denies: Fever, Chills Eyes: denies: Loss of vision Ears: denies: Ear pain, Drainage/discharge Nose: denies: Congestion Throat: reports: Reviewed and negative Cardiac: reports: Chest pain / pressure. denies: Palpitations, Calf pain Respiratory: denies: Dyspnea, Cough, Wheezing GI: denies: Nausea, Vomiting : reports: Reviewed and negative Skin: reports: Reviewed and negative Musculoskeletal: denies: Neck pain, Back pain, Extremity pain Neurologic: denies: Generalized weakness, Numbness, Syncope, Headache Immunocompromised: denies: Immunocompromised PD PAST MEDICAL HISTORY - Past Medical History Cardiovascular: Hypertension, Pulmonary embolism Respiratory: None Neuro: None Endocrine/Autoimmune: None GI: None : None HEENT: Glaucoma Psych: None Musculoskeletal: None Derm: None - Past Surgical History Past Surgical History: Yes Ortho: Amputation, Other HEENT: Cataracts - Present Medications Home Medications: Ambulatory Orders Medication Instructions Recorded Confirmed Acetaminophen [Tylenol] 500 mg PO PRN PRN 07/29/16 07/23/17 Allopurinol 300 mg PO DAILY 07/29/16 07/23/17 Psyllium Husk [Metamucil] 2 cap PO DAILY 07/29/16 07/23/17 Lisinopril 10 mg PO BID 09/23/16 07/23/17 Metoprolol Succinate [Toprol Xl] 100 mg PO DAILY 09/23/16 07/23/17 Atorvastatin [Lipitor] 20 mg PO QPM 11/18/16 07/23/17 Brimonidine 0.15% Ophth Drops 1 drops EACHEYE DAILY 01/07/17 07/23/17 [Alphagan P 0.15% Ophth Drops] Latanoprost 1 drops EACHEYE QPM 01/07/17 07/23/17 Amlodipine Besylate [Norvasc] 2.5 mg PO DAILY #30 tablet 07/21/17 07/23/17 Aspirin 81 mg PO DAILY 07/21/17 07/23/17 Clopidogrel [Plavix] 75 mg PO DAILY 07/21/17 07/23/17 Multivitamin [Theragran] 1 tab PO DAILY 07/21/17 07/23/17 Nitroglycerin [Nitrostat] 0.4 mg SL Q5MIN PRN #100 tablet 07/21/17 07/23/17 Amlodipine Besylate [Norvasc] 2.5 mg PO DAILY 07/23/17 07/23/17 - Allergies Allergies/Adverse Reactions: Allergies Allergy/AdvReac Type Severity Reaction Status Date / Time No Known Drug Allergies Allergy Verified 07/23/17 03:55 - Social History Does the pt smoke?: No Smoking Status: Never smoker Does the pt drink ETOH?: No Does the pt have substance abuse?: No - POLST Patient has POLST: No POLST Status: DNR (Patient requests DNR status; will do a ACP later today.) PD ED PE NORMAL - Vitals Vital signs reviewed: Yes - General General: Alert and oriented X 3, No acute distress - HEENT HEENT: Atraumatic, PERRL, Moist mucous membranes - Neck Neck: Supple, no meningeal sign - Cardiac Cardiac: RRR, No murmur - Respiratory Respiratory: No respiratory distress - Abdomen Abdomen: Soft, Non tender, Non distended - Derm Derm: Normal color, Warm and dry, No rash - Extremities Extremities: No deformity, No edema - Neuro Neuro: Alert and oriented X 3, No motor deficit, No sensory deficit, Normal speech Results - Vitals Vitals: Vital Signs - 24 hr 07/23/17 07/23/17 03:49 05:06 Temperature 35.9 C L Heart Rate 55 L 53 L Respiratory 16 13 Rate Blood Pressure 159/66 H 132/76 H O2 Saturation 100 99 Oxygen O2 Source Room air - EKG (time done) 0350 Rate: Rate (enter#) (54) Rhythm: NSR [place]: LAD, Anterior hemiblock Intervals: Prolonged KS QRS: Poor R wave progression Compare to prior EKG: Unchanged from prior EKG - Labs Labs: Laboratory Tests 07/23/17 07/23/17 07/23/17 04:13 04:13 04:13 WBC 6.4 RBC 4.27 L Hgb 13.0 L Hct 37.1 L MCV 86.8 MCH 30.5 MCHC 35.1 RDW 13.9 Plt Count 143 MPV 8.0 Neut # 4.1 Lymph # 1.2 L Sauk # 0.7 Eos # 0.4 Baso # 0.1 Absolute Nucleated RBC 0.00 Nucleated RBC % 0.0 Sodium 130 L Potassium 4.8 Chloride 93 L Carbon Dioxide 26 Anion Gap 11.0 BUN 22 H Creatinine 1.1 Estimated GFR (MDRD) 63 L Glucose 100 Calcium 9.3 Total Bilirubin 0.8 AST 28 ALT 33 Alkaline Phosphatase 75 Troponin I < 0.04 B-Natriuretic Peptide Total Protein 6.4 L Albumin 4.0 Globulin 2.4 Albumin/Globulin Ratio 1.7 Lipase 23 07/23/17 04:13 WBC RBC Hgb Hct MCV MCH MCHC RDW Plt Count MPV Neut # Lymph # [place] # Eos # Baso # Absolute Nucleated RBC Nucleated RBC % Sodium Potassium Chloride Carbon Dioxide Anion Gap BUN Creatinine Estimated GFR (MDRD) Glucose Calcium Total Bilirubin AST ALT Alkaline Phosphatase Troponin I B-Natriuretic Peptide 98 Total Protein Albumin Globulin Albumin/Globulin Ratio Lipase - Rads (name of study) chest x-ray Radiology: Final report received (no acute abnormalities) PD MEDICAL DECISION MAKING - ED course Complexity details: reviewed old records, reviewed results, re-evaluated patient , considered differential, d/w patient, d/w family ED course: Patient was seen and examined at bedside. IV access was gained and labs were drawn. ekg was performed and was unchanged from previous. Patient's ekg was unchanged from previous. Patient's diagnostics were all within normal limits. Patient required a stress test and possibly a catheterization. A lengthy discussion was had with the patient and his . He stated he is 87 with cancer and does not know if he wants to go through with a stress test and ultimately a stent if that is what he needs. Family stated that they did not want to be transferred. Patient and were made aware that he was at high risk for adverse outcome. they understood and stated that they would think about it at home. Patient remained chest pain free while in the emergency department. Departure - Departure Disposition: 01 Home, Self Care Clinical Impression: Unstable angina Condition: Stable Instructions: Nitroglycerin Fast Act Dc, Angina Dc Follow-Up: Enmanuel Reyes MD [Primary Care Provider] - Tomorrow Comments: Your diagnostics today were within normal limits but it doesn't mean that there is nothing wrong with your heart. You need a stress test or catheterization. If you decide that you want to go through with any procedures then it is important that you get this test done sooner rather than later. You can return to the emergency department at any time for new, worsening or uncontrollable symptoms.
[2017-07-23 04:45] LABS: ALBUMIN/GLOBULIN RATIO 1.7 (1.0-2.2); BILIRUBIN,TOTAL 0.8 mg/dL (0.2-1.0); CALCIUM 9.3 mg/dL (8.5-10.3); CREATININE 1.1 mg/dL (0.6-1.2); TOTAL PROTEIN 6.4 g/dL (6.7-8.2)
[2017-07-23 05:07] VITALS: BP 132/76
== END 2017-07-23 05:51 | disposition home or self-care (01) ==
LOC: ED 03:46
DX: I20.0 Unstable angina (principal); I10 Essential (primary) hypertension; I44.4 Left anterior fascicular block; R94.31 Abnormal electrocardiogram [ECG] [EKG]; E78.5 Hyperlipidemia, unspecified; Z86.711 Personal history of pulmonary embolism
CPT/HCPCS: 36415; 71046; 80053; 83690; 83880; 84484; 85025; 93005; 99283; 99285

== ENCOUNTER 2017-08-11 10:51 | Outpatient (CLI) | payer MEDICARE ==
[2017-08-11] MEDS: ADENOSINE 90 MG/30 ML VIAL IVP ONE (14:47)
[2017-08-11 14:59] VITALS: BP 155/85
--- NOTE | 2017-08-12 08:01 | CARDIAC PROCEDURE NOTE ---
DATE OF SERVICE: 08/11/2017 Physician: Enmanuel Reyes MD DATE OF SERVICE: 08/11/2017 PROCEDURE: Adenosine infusion for sestamibi myocardial imaging. INDICATIONS: An 87-year-old male with known vascular disease and recent episodes of chest pain. DESCRIPTION OF PROCEDURE: The patient received adenosine sestamibi per nuclear medicine protocol. He experienced some vague chest discomfort and some facial flushing, but otherwise tolerated the infusion well. His vital signs remained relatively stable, albeit slightly hypertensive. He had no ectopy. There were some nondiagnostic anterior ST changes which were transient. IMPRESSION: Unremarkable adenosine infusion for sestamibi myocardial imaging. See nuclear medicine report for details. TD: 08/12/2017 08:00
--- NOTE | 2017-08-12 09:10 | Nuclear Medicine Report ---
EXAM: NUCLEAR MEDICINE MYOCARDIAL PERFUSION STRESS AND REST EXAM DATE: 08/11/2017 02:49 PM. CLINICAL HISTORY: Chest pain. COMPARISON: None. TECHNIQUE: Patient given 10.8 mCi technetium 99m sestamibi IV for the rest portion of the study. Non- gated cardiac SPECT scintigraphy performed with multiplanar reformats. After an appropriate delay, patient was given 62.25 mg adenosine by slow intravenous infusion for pha rmacologic stress. The patient was given 39.8 mCi technetium 99m sestamibi IV. Cardiac gated SPECT scintigraphy performe d with multiplanar reformats, left ventricular ejection fraction estimation, and wall motion analysis . FINDINGS: There is a moderate-sized focus of mild decreased activity in the inferior wall extending inferolater al, from apex to base, fixed on stress and rest. Otherwise uniform activity in the left ventricle myocardium. No reversible perfusion defects. Wall motion is uniform. Left ventricular ejection fraction estimated at 71%. IMPRESSION: 1. 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 2. Left ventricular ejection fraction estimated at 71%. [facility] Referring Provider Line: [phone] SITE ID: [id number]
== END 2017-08-11 10:52 | disposition home or self-care (01) ==
LOC: DI 10:51
PROVIDERS: ATTEND Internal Medicine
DX: R07.9 Chest pain, unspecified (principal)
CPT/HCPCS: 78452; 93017; A9500; J0153

== ENCOUNTER → 2018-05-05 | Outpatient (CLI) | payer MEDICARE ==
[2018-05-05 13:45] LABS: BASOPHILS % (AUTO) 0.1 %; EOSINOPHILS # (AUTO) 0.3 10^3/uL (0.0-0.7); HGB - HEMOGLOBIN 13.1 g/dL (14.0-18.0); LYMPHOCYTES # (AUTO) 1.2 10^3/uL (1.5-3.5); LYMPHOCYTES % (AUTO) 17.6 %; MEAN CORPUSCULAR HEMOGLOBIN 31.1 pg (27.0-31.0); MEAN CORPUSCULAR HGB CONC 34.4 g/dL (32.0-36.0); MEAN CORPUSCULAR VOLUME 90.6 fL (80.0-94.0); MEAN PLATELET VOLUME 8.7 fL (7.4-11.4); MONOCYTES # (AUTO) 0.7 10^3/uL (0.0-1.0); NEUTROPHILS # (AUTO) 4.4 10^3/uL (1.5-6.6); NEUTROPHILS % (AUTO) 67.3 %; PLT - PLATELET COUNT 157 10^3/uL (130-450); RED CELL DISTRIBUTION WIDTH 13.7 % (12.0-15.0); WHITE BLOOD COUNT 6.5 x10^3/uL (4.8-10.8)
[2018-05-05 14:03] LABS: ALBUMIN/GLOBULIN RATIO 1.4 (1.0-2.2); ALKALINE PHOSPHATASE 80 IU/L (42-121); ALT ALANINE AMINOTRANSFERASE 32 IU/L (10-60); AST ASPARTATE AMINOTRANSFERASE 28 IU/L (10-42); BILIRUBIN,TOTAL 0.9 mg/dL (0.2-1.0); BUN - BLOOD UREA NITROGEN 20 mg/dL (6-20); CALCIUM 9.2 mg/dL (8.5-10.3); CARBON DIOXIDE - CO2 28 mmol/L (21-32); CHLORIDE 97 mmol/L (101-111); CHOL/HDL RATIO 2.6 (<5.0); CHOLESTEROL 113 mg/dL; CREATININE 1.1 mg/dL (0.6-1.2); GFR - MDRD 63 (>89); GLUCOSE 89 mg/dL (70-100); HDL CHOLESTEROL 43 mg/dL; LDL CHOLESTEROL,CALCULATED 44 mg/dL; SODIUM 132 mmol/L (135-145); TOTAL PROTEIN 6.9 g/dL (6.7-8.2); URIC ACID 2.6 mg/dL (2.6-7.2); VLDL CHOLESTEROL 26 mg/dL
== END ==
LOC: LAB.R 08:00
PROVIDERS: ATTEND Internal Medicine
DX: M10.9 Gout, unspecified (principal); C90.00 Multiple myeloma not having achieved remission; I10 Essential (primary) hypertension; I26.99 Other pulmonary embolism without acute cor pulmonale
CPT/HCPCS: 80053; 80061; 83721; 84443; 84550; 85025

== ENCOUNTER 2018-09-29 17:17 | Outpatient (CLI) | payer MEDICARE ==
--- NOTE | 2018-09-30 11:08 | XRAY Report ---
Reason: COUGH Procedure Date: 09/29/2018 Accession Number: [id number] / [id number] Procedure: XR - Chest 2 View X-Ray CPT Code: 68049 FULL RESULT: EXAM: CHEST RADIOGRAPHY EXAM DATE: 09/29/2018 05:30 PM. CLINICAL HISTORY: COUGH. COMPARISON: CHEST 2 VIEW 07/23/2017 4:08 AM. TECHNIQUE: 2 views. FINDINGS: Lungs/Pleura: Linear atelectasis or scarring left lung base. No focal opacities evident. No pleural effusion. No pneumothorax. Hyperlucent lungs. Flattened hemidiaphragms. Mediastinum: Heart size normal. Ectatic aorta Other: Old bilateral rib fractures. DJD spine. Compressions lower thoracic vertebral bodies. IMPRESSION: No active cardiopulmonary disease [facility]
== END 2018-09-29 17:18 | disposition home or self-care (01) ==
LOC: DI 17:17
PROVIDERS: ATTEND Registered Nurse
DX: R05 Cough (principal)
CPT/HCPCS: 71046

== ENCOUNTER 2018-11-22 14:24 | Outpatient (CLI) | payer MEDICARE ==
--- NOTE | 2018-11-24 16:09 | XRAY Report ---
Reason: MULTIPLE MYELOMA Procedure Date: 11/22/2018 Accession Number: [id number] / [id number] Procedure: XR - Skeletal Survey CPT Code: FULL RESULT: EXAM: OSSEOUS SURVEY EXAM DATE: 11/22/2018 02:58 PM. CLINICAL HISTORY: MULTIPLE MYELOMA. COMPARISON: CHEST 2 VIEW 09/29/2018 5:23 PM. TECHNIQUE: Lateral skull, lateral cervical spine, PA chest, lateral and AP thoracic spine, lateral and AP lumbar spine, AP pelvis, AP views of both femurs and AP views of both humeri. FINDINGS: Bones are qualitatively osteopenic which limits sensitivity. Skull: No fractures or bone lesions. Chest: The cardiomediastinal silhouette is stable with calcifications of the aortic arch and linear markings in the retrocardiac region, subsegmental atelectasis versus scarring. Cervical Spine: Multilevel degenerative changes with anterolisthesis of C4 on C5, approximately 2-3 mm. No bone lesion or definite fracture. Thoracic Spine: S-shaped thoracolumbar scoliosis and multilevel degenerative changes including a T10 compression fracture with approximately 50% loss of height. Lumbar Spine: Aforementioned scoliosis and extensive multilevel degenerative changes with no definite lytic or sclerotic lesion detected. Pelvis: No fractures or bone lesions. The visualized joint spaces are normal. Upper Extremities: Lytic lesions are seen in both humeri, please note that osteopenia not only decrease sensitivity but cause an increase of the false positive rate. Lower Extremities: Lytic lesions are seen in both femurs. Other: The other visualized soft tissues are normal. IMPRESSION: Skeletal survey limited by osteopenia with impression of lytic lesions in bilateral humeri and femurs. [facility]
== END 2018-11-22 14:25 | disposition home or self-care (01) ==
LOC: DI 14:24
PROVIDERS: ATTEND Internal Medicine
DX: C90.00 Multiple myeloma not having achieved remission (principal)
CPT/HCPCS: 77075

== ENCOUNTER 2019-03-08 14:02 | Emergency (ER) | payer MEDICARE ==
[2019-03-08 14:14] VITALS: BP 138/97
== END 2019-03-08 14:20 | disposition left against medical advice (07) ==
LOC: ED 14:02
DX: Z53.21 Procedure and treatment not carried out due to patient leaving prior to being seen by health care provider (principal)

== ENCOUNTER 2019-03-09 15:30 | Outpatient (CLI) | payer MEDICARE | END 2019-03-09 23:59 | disposition home or self-care (01) | LOC: LAB.R 15:30 | PROVIDERS: ATTEND Physician Assistant Medical | DX: L03.115 Cellulitis of right lower limb (principal) | CPT/HCPCS: 87070; 87181; 87205 ==

== ENCOUNTER 2019-06-09 02:59 | Emergency (ER) | payer MEDICARE ==
[2019-06-09] MEDS ORDERED: IPRATROPIUM/ALBUTEROL 3 ML NEB INH STA (03:30)
[2019-06-09] MEDS ORDERED: CHERRY SYRUP 10 ML UDC PO ONE (03:30)
[2019-06-09] MEDS ORDERED: DEXAMETHASONE 10 MG/ML VIAL PO STA (03:30)
--- NOTE | 2019-06-09 03:58 | XRAY Report ---
Reason: cough bibasilar rhonchi Procedure Date: 06/09/2019 Accession Number: [id number] / [id number] Procedure: XR - Chest 2 View X-Ray CPT Code: 89308 Final Report FULL RESULT: EXAM: CHEST RADIOGRAPHY EXAM DATE: 06/09/2019 03:34 AM. CLINICAL HISTORY: Cough bibasilar rhonchi. COMPARISON: SKELETAL SURVEY 11/22/2018 2:36 PM. TECHNIQUE: 2 views. FINDINGS: Lungs/Pleura: Linear opacities at lung bases, likely atelectasis. Lungs otherwise clear. No pulmonary edema. No pleural effusion. No pneumothorax. Normal volumes. Mediastinum: Heart and mediastinal contours are unremarkable. Atherosclerosis at aortic arch. Other: Stable heterogeneous osseous structures. IMPRESSION: 1. Linear opacities at lung bases, likely atelectasis. 2. Otherwise no evidence of acute cardiopulmonary process. [facility]
--- NOTE | 2019-06-09 04:14 | ED Physician Documentation ---
PD HPI URI - Stated complaint Stated Complaint: SOA,COUGHING - Chief complaint Chief Complaint: Resp - History obtained from History obtained from: Patient, Family - History of Present Illness Timing - onset: How many weeks ago (1) Timing duration: Weeks (1) Timing details: Gradual onset, Still present Associated symptoms: Fever, Nasal congestion, Rhinorrhea, Productive cough, Dyspnea Improves by: Rest, Medication Similar symptoms before: Diagnosis (bronchitis and pneumonia) Recently seen: Clinic - Additional information Additional information: 88-year-old male with a history of multiple myeloma has developed a cough congestion over the past week and he felt this was a simple cold it progressed during the day yesterday he developed a low-grade fever he has had some production of yellow-tinged phlegm and shortness of breath. He finds it hard to get a full deep breath and he has been sleeping in an easy chair. He is developed some swelling to his lower extremities. He is taking some prednisone about 15 mg daily. Review of Systems Constitutional: reports: Fever (low grade today) Eyes: denies: Decreased vision Ears: denies: Ear pain Nose: reports: Rhinorrhea / runny nose, Congestion Throat: denies: Sore throat Cardiac: denies: Chest pain / pressure, Palpitations Respiratory: reports: Dyspnea, Cough, Wheezing GI: denies: Abdominal Pain, Nausea, Vomiting : denies: Dysuria PD PAST MEDICAL HISTORY - Past Medical History Past Medical History: Yes Cardiovascular: Hypertension, High cholesterol, Pulmonary embolism Respiratory: None Endocrine/Autoimmune: None GI: None : None HEENT: Glaucoma Psych: None Musculoskeletal: None, Gout Derm: None - Past Surgical History Past Surgical History: Yes Ortho: Amputation, Other HEENT: Cataracts - Present Medications Home Medications: Ambulatory Orders Medication Instructions Recorded Confirmed Acetaminophen [Tylenol] 500 mg PO PRN PRN 07/29/16 05/24/19 Allopurinol 300 mg PO DAILY 07/29/16 05/24/19 Psyllium Husk [Metamucil] 2 cap PO DAILY 07/29/16 05/24/19 Lisinopril 10 mg PO BID 09/23/16 05/24/19 Atorvastatin [Lipitor] 20 mg PO QPM 11/18/16 05/24/19 Brimonidine 0.15% Ophth Drops 1 drops EACHEYE DAILY 01/07/17 05/24/19 [Alphagan P 0.15% Ophth Drops] Latanoprost 1 drops EACHEYE QPM 01/07/17 05/24/19 Clopidogrel [Plavix] 75 mg PO DAILY 07/21/17 05/24/19 Multivitamin [Theragran] 1 tab PO DAILY 07/21/17 05/24/19 Nitroglycerin [Nitrostat] 0.4 mg SL Q5MIN PRN #100 tablet 07/21/17 05/24/19 Gabapentin 300 mg ORAL QPM PRN 02/17/18 05/24/19 Pantoprazole Sodium [Protonix] 40 mg PO DAILY 11/09/18 05/24/19 Prednisone 5 mg PO DAILY 11/30/18 05/24/19 Lenalidomide [Revlimid] 15 mg ORAL DAILY 02/28/19 05/24/19 Amoxicillin 500 mg PO DAILY 04/12/19 05/24/19 Metoprolol Succinate 50 mg PO DAILY 04/12/19 05/24/19 Albuterol Sulf [Ventolin Hfa 1 - 2 puffs INH Q4HR PRN #1 inhaler 06/09/19 Inhaler] Azithromycin [Zithromax] 250 mg PO DAILY #4 tablet 06/09/19 - Allergies Allergies/Adverse Reactions: Allergies Allergy/AdvReac Type Severity Reaction Status Date / Time No Known Drug Allergies Allergy Verified 06/09/19 03:10 - Social History Does the pt smoke?: No Smoking Status: Never smoker Does the pt drink ETOH?: No Does the pt have substance abuse?: No - Immunizations Immunizations are current?: Yes - POLST Patient has POLST: No POLST Status: DNR PD ED PE NORMAL - Vitals Vital signs reviewed: Yes (hypertensive ) - General General: Alert and oriented X 3, No acute distress, Well developed/nourished - HEENT HEENT: Atraumatic, PERRL, EOMI, Ears normal, Other (dry mucous membranes ) - Neck Neck: Supple, no meningeal sign, No bony TTP - Cardiac Cardiac: RRR, No murmur - Respiratory Respiratory: No respiratory distress, Other (bibasilar rhonchi ) - Abdomen Abdomen: Soft, Non tender - Back Back: No CVA TTP, No spinal TTP - Derm Derm: Normal color, Warm and dry, No rash - Extremities Extremities: No deformity, No edema, No calf tenderness / cord - Neuro Neuro: Alert and oriented X 3, private duty aide 2-12 intact, No motor deficit, No sensory deficit, Normal speech Eye Opening: Spontaneous Motor: Obeys Commands Verbal: Oriented GCS Score: 15 - Psych Psych: Normal mood, Normal affect Results - Vitals Vitals: Vital Signs - 24 hr 06/09/19 06/09/19 03:07 03:43 Temperature 36.6 C Heart Rate 82 73 Respiratory 17 20 Rate Blood Pressure 151/83 H O2 Saturation 98 Oxygen O2 Source Room air - Rads (name of study) chest 2 Radiology: Prelim report reviewed (Impression: 1. Linear opacities at lung bases likely atelectasis. Otherwise no evidence of acute cardiopulmonary process.), EMP read indepedently, See rad report PD MEDICAL DECISION MAKING - ED course Complexity details: reviewed old records, reviewed results, re-evaluated patient, considered differential, d/w patient, d/w family ED course: 88-year-old male with multiple myeloma has a cough and congestion and on exam sounds like he might have pneumonia. A chest x-ray shows no evidence of infiltrate and the patient responds well to a treatment with DuoNeb. He is subsequently administered an albuterol treatment with teaching in the use of a spacer for an inhaler. He is administered azithromycin 500 mg orally and he is given dexamethasone 10 mg orally. Departure - Departure Disposition: 01 Home, Self Care Clinical Impression: Asthmatic bronchitis with acute exacerbation Qualifiers: Asthma severity: mild Asthma persistence: intermittent Qualified Code(s): J45.21 - Mild intermittent asthma with (acute) exacerbation Condition: Stable Instructions: ED Bronchitis Asthmatic Follow-Up: Tristan Pepe MD [Primary Care Provider] - Prescriptions: Albuterol Sulf [Ventolin Hfa Inhaler] 1 - 2 puffs INH Q4HR PRN #1 inhaler PRN Reason: Shortness Of Air/Wheezing Azithromycin [Zithromax] 250 mg PO DAILY #4 tablet
[2019-06-09] MEDS ORDERED: ALBUTEROL NEB 2.5 MG/3 ML INH STA (04:19)
[2019-06-09] MEDS ORDERED: AZITHROMYCIN 250 MG TABLET PO STA (04:21)
[2019-06-09 05:02] VITALS: BP 158/73
== END 2019-06-09 05:02 | disposition home or self-care (01) ==
LOC: ED 02:59
DX: J45.21 Mild intermittent asthma with (acute) exacerbation (principal); C90.00 Multiple myeloma not having achieved remission; I10 Essential (primary) hypertension; Z86.711 Personal history of pulmonary embolism; Z79.02 Long term (current) use of antithrombotics/antiplatelets
CPT/HCPCS: 71046; 94640; 99283; 99284; A9270

== ENCOUNTER 2019-08-22 19:25 | Observation (INO) | payer MEDICARE ==
--- NOTE | 2019-08-22 20:08 | ED Physician Documentation ---
PD HPI DYSPNEA - Stated complaint Stated Complaint: SOA - Chief complaint Chief Complaint: Resp - History obtained from History obtained from: Patient - History of Present Illness Timing - onset: How many days ago (3-4) Timing - duration: Days Timing - details: Gradual onset, Waxing and waning Pain level max: 2 Pain level now: 0 Improved by: Rest Worsened by: Exertion Recently seen: Not recently seen - Additional information Additional information: c/o 3-4 days of cough productive of green sputum, "diaphragm hurts" (per patient; only when he coughs). Tmax was 100.4 3 days ago but no fevers since then. He also noted large bruise on his abdominal wall today, denies trauma. He also c/o diarrhea, several episodes since this morning. He also fell last night due to loss of balance while walking in his house, struck his head but denies LOC and denies CARBONE. Patient has multiple myeloma and receives Revlimid Review of Systems Constitutional: reports: Fever (3 days ago but not since then (Tmax 100.4)), Fatigue. denies: Chills, Sweats Eyes: reports: Reviewed and negative Ears: reports: Reviewed and negative Nose: reports: Rhinorrhea / runny nose Throat: denies: Sore throat Cardiac: reports: Chest pain / pressure ("my diaphragm hurts" (per patient)) Respiratory: reports: Dyspnea, Cough. denies: Hemoptysis, Wheezing GI: reports: Diarrhea. denies: Abdominal Pain, Nausea, Vomiting, Constipation, Bloody / black stool : denies: Dysuria, Frequency, Hematuria Skin: denies: Rash Neurologic: denies: Confused, Altered mental status Endocrine: reports: Easy bruising / bleeding PD PAST MEDICAL HISTORY - Past Medical History Cardiovascular: Hypertension, High cholesterol, Pulmonary embolism Respiratory: None Endocrine/Autoimmune: None GI: None : None HEENT: Glaucoma Psych: None Musculoskeletal: None, Gout Derm: None - Past Surgical History Past Surgical History: Yes Ortho: Amputation, Other HEENT: Cataracts - Present Medications Home Medications: Ambulatory Orders Medication Instructions Recorded Confirmed Acetaminophen [Tylenol] 500 mg PO PRN PRN 07/29/16 07/12/19 Psyllium Husk [Metamucil] 2 cap PO DAILY 07/29/16 07/12/19 allopurinoL [Allopurinol] 300 mg PO DAILY 07/29/16 07/12/19 lisinopriL [Lisinopril] 10 mg PO BID 09/23/16 07/12/19 Atorvastatin [Lipitor] 20 mg PO QPM 11/18/16 07/12/19 Brimonidine 0.15% Ophth Drops 1 drops EACHEYE DAILY 01/07/17 07/12/19 [Alphagan P 0.15% Ophth Drops] Latanoprost 1 drops EACHEYE QPM 01/07/17 07/12/19 Clopidogrel [Plavix] 75 mg PO DAILY 07/21/17 07/12/19 Multivitamin [Theragran] 1 tab PO DAILY 07/21/17 07/12/19 Nitroglycerin [Nitrostat] 0.4 mg SL Q5MIN PRN #100 tablet 07/21/17 07/12/19 Gabapentin 300 mg ORAL QPM PRN 02/17/18 07/12/19 Pantoprazole Sodium [Protonix] 40 mg PO DAILY 11/09/18 07/12/19 Prednisone 5 mg PO DAILY 11/30/18 07/12/19 Lenalidomide [Revlimid] 15 mg ORAL DAILY 02/28/19 07/12/19 Amoxicillin 500 mg PO DAILY 04/12/19 07/12/19 Metoprolol Succinate 50 mg PO DAILY 04/12/19 07/12/19 Albuterol Sulf [Ventolin Hfa 1 - 2 puffs INH Q4HR PRN #1 inhaler 06/09/19 07/12/19 Inhaler] Azithromycin [Zithromax] 250 mg PO DAILY #4 tablet 06/09/19 07/12/19 - Allergies Allergies/Adverse Reactions: Allergies Allergy/AdvReac Type Severity Reaction Status Date / Time No Known Drug Allergies Allergy Verified 07/12/19 16:05 - Social History Does the pt smoke?: No Smoking Status: Never smoker Does the pt drink ETOH?: No Does the pt have substance abuse?: No - Immunizations Immunizations are current?: Yes - POLST Patient has POLST: No POLST Status: DNR PD ED PE NORMAL - Vitals Vital signs reviewed: Yes - General General: Alert and oriented X 3, No acute distress (NAD at rest but becomes dyspneic with movements such as sitting up, standing), Well developed/nourished - HEENT HEENT: PERRL, EOMI, Moist mucous membranes, Other (superficial abrasion left forehead without swelling or bony tenderness) - Neck Neck: Supple, no meningeal sign - Cardiac Cardiac: RRR - Respiratory Respiratory: No respiratory distress - Abdomen Abdomen: Soft, Non tender, Non distended, Other (large echymosis lower abdomen, predominantly midline/suprapubic. nontender, flat) - Back Back: No CVA TTP, No spinal TTP - Derm Derm: Warm and dry - Neuro Neuro: Alert and oriented X 3, security monitor 2-12 intact, No motor deficit, No sensory deficit, Normal speech Eye Opening: Spontaneous Motor: Obeys Commands Verbal: Oriented GCS Score: 15 PD ED PE EXPANDED - Cardiac Cardiac: Murmur Present (2/6 ALEX) - Respiratory Respiratory: Other (mild scattered bilateral rhonchi ) - Rectal Rectal: Heme Occult Pos - QC + (Trace positive guaiac of grossly brown stool. the perianal region was visible inflamed with erythema and excoriation). No: Hemorrhoid - Extremities Extremities: Pedal edema bilateral Results - Vitals Vitals: Oxygen O2 Source Room air - EKG (time done) No standard instances Rate: Rate (enter#) (124), Tachy Rhythm: Atrial fibrillation Mark: LAD QRS: Normal Ischemia: Normal ST segments - Labs Labs: Laboratory Tests 08/22/19 08/22/19 08/22/19 19:37 21:22 21:22 WBC 4.6 L RBC 2.80 L Hgb 8.6 L Hct 26.2 L MCV 93.6 MCH 30.7 MCHC 32.8 RDW 14.4 Plt Count 91 L MPV 10.1 Neut # (Auto) 3.0 Lymph # (Auto) 0.4 L [place] # (Auto) 1.1 H Eos # (Auto) 0.1 Baso # (Auto) 0.0 Absolute Nucleated RBC 0.00 Nucleated RBC % 0.0 PT INR APTT Sodium 127 L Potassium 4.4 Chloride 95 L Carbon Dioxide 21 Anion Gap 11.0 BUN 32 H Creatinine 1.8 H Estimated GFR (MDRD) 36 L Glucose 109 H Calcium 7.7 L Total Bilirubin 1.0 AST 62 H ALT 46 Alkaline Phosphatase 82 Troponin I High Sens B-Natriuretic Peptide Total Protein 5.7 L Albumin 3.0 L Globulin 2.7 Albumin/Globulin Ratio 1.1 Lipase 31 Influenza A (Rapid) Negative Influenza B (Rapid) Negative 08/22/19 08/22/19 08/23/19 21:22 21:22 01:05 WBC RBC Hgb Hct MCV MCH MCHC RDW Plt Count MPV Neut # (Auto) Lymph # (Auto) [place] # (Auto) Eos # (Auto) Baso # (Auto) Absolute Nucleated RBC Nucleated RBC % PT 12.5 INR 1.1 APTT 25.1 Sodium Potassium Chloride Carbon Dioxide Anion Gap BUN Creatinine Estimated GFR (MDRD) Glucose Calcium Total Bilirubin AST ALT Alkaline Phosphatase Troponin I High Sens 31.4 H* B-Natriuretic Peptide 308 H Total Protein Albumin Globulin Albumin/Globulin Ratio Lipase Influenza A (Rapid) Influenza B (Rapid) - Rads (name of study) chest xray Radiology: Prelim report reviewed, See rad report PD MEDICAL DECISION MAKING - ED course Complexity details: reviewed old records, reviewed results, re-evaluated patient, considered differential, d/w patient, d/w family ED course: During ED stay, patient went into [facility] (was NSR initially). Per records and discussion with patient, the atrial fibrillation is apparent a new diagnosis for him. He is pancytopenic with a notable decrease in hemoglobin from 10.4 six days ago (08/16/19) to 8.6 on tonight's result; this is the lowest h/h on [facility] records (dating back to 2017). D/W Dr. Jiang (hem/onc on-call for Dr. Ryder); at present, does not feel patient's presentation, results, and H+P indicate necessity or immediate benefit for transfer, and appropriate for admit to [facility] for further testing and treatment. The pancytopenia is not new, although anemia is worse, and is likely due to his multiple myeloma. Departure - Departure Disposition: ED Place in Observation Clinical Impression: New onset atrial fibrillation, Shortness of breath, Pancytopenia Condition: Stable Discharge Date/Time: 08/23/19 01:49
[2019-08-22] MEDS ORDERED: SODIUM CHLORIDE 0.9% 500 ML IV STA (20:44)
--- NOTE | 2019-08-22 21:11 | XRAY Report ---
Reason: cough, dyspnea Procedure Date: 08/22/2019 Accession Number: [id number] / [id number] Procedure: XR - Chest 2 View X-Ray CPT Code: 80455 Final Report FULL RESULT: EXAM: CHEST RADIOGRAPHY EXAM DATE: 08/22/2019 09:02 PM. CLINICAL HISTORY: Cough, dyspnea. COMPARISON: CHEST 2 VIEW 06/09/2019 3:34 AM SKELETAL SURVEY 11/22/2018 2:36 PM. TECHNIQUE: 2 views. FINDINGS: Lungs/Pleura: No focal opacities evident. No pleural effusion. No pneumothorax. Normal volumes. Mediastinum: Heart and mediastinal contours are unremarkable. Other: Irregularity along the endplates in a lower thoracic vertebral body, which is collapsed. Similar appearance as on the prior exam and even better seen 11/22/2018 skeletal survey. Diffuse demineralization. IMPRESSION: No acute disease. RADIA
[2019-08-22 21:26] LABS: BASOPHILS % (AUTO) 0.4 %; EOSINOPHILS # (AUTO) 0.1 10^3/uL (0.0-0.7); EOSINOPHILS % (AUTO) 2.2 %; HGB - HEMOGLOBIN 8.6 g/dL (14.0-18.0); LYMPHOCYTES # (AUTO) 0.4 10^3/uL (1.5-3.5); LYMPHOCYTES % (AUTO) 8.3 %; MEAN CORPUSCULAR HEMOGLOBIN 30.7 pg (27.0-31.0); MEAN CORPUSCULAR HGB CONC 32.8 g/dL (32.0-36.0); MEAN CORPUSCULAR VOLUME 93.6 fL (80.0-94.0); MEAN PLATELET VOLUME 10.1 fL (7.4-11.4); MONOCYTES # (AUTO) 1.1 10^3/uL (0.0-1.0); MONOCYTES % (AUTO) 23.9 %; NEUTROPHILS % (AUTO) 64.5 %; PLT - PLATELET COUNT 91 10^3/uL (130-450); RED CELL DISTRIBUTION WIDTH 14.4 % (12.0-15.0); WHITE BLOOD COUNT 4.6 x10^3/uL (4.8-10.8)
[2019-08-22 21:40] LABS: ALBUMIN/GLOBULIN RATIO 1.1 (1.0-2.2); CALCIUM 7.7 mg/dL (8.5-10.3); CREATININE 1.8 mg/dL (0.6-1.2); TOTAL PROTEIN 5.7 g/dL (6.7-8.2)
[2019-08-22 21:47] LABS: INR 1.1 (0.8-1.2); PT - PROTHROMBIN TIME 12.5 secs (9.9-12.6)
[2019-08-22 21:54] LABS: PARTIAL THROMBOPLASTIN TIME 25.1 secs (24.9-33.3)
[2019-08-22] MEDS ORDERED: METOPROLOL 5 MG/5 ML VIAL IVP STA (23:06)
[2019-08-23] MEDS ORDERED: diltiaZEM INJ 5 MG/ML VIAL IVP STA (00:59)
--- NOTE | 2019-08-23 00:59 | HISTORY & PHYSICAL EXAMINATION ---
Chief Complaint - Chief Complaint Chief Complaint: short of breath History of Present Illness - Admitted From Admitted From:: Home/ER - History Obtained From Records Reviewed: [facility] History obtained from: patient and Dr. Iyer Exam Limitations: fatigue - History of Present Illness HPI Comment/Other: This elderly patient has been anemic and was initially evaluated in February 2007 for that. At that time he had an abnormal electrophoresis with a paraprotein spike of 2.5 g that was an IgG kappa type. He was diagnosed as multiple myeloma and has received treatment with melphalan, prednisone and thalidomide. Worsening lytic lesions in 2007 resulted in starting on pamidronate. That was changed to Zometa because of rash. In 2011 he had increased plasma cells and he was started on Velcade and dexamethasone. He continued to have progression by February 2014 and he was placed in the clinical study with car fill Xomed and dexamethasone. He had a dose reduction because of pulmonary toxicity and restless legs. Progression of his disease in September 2015 resulted in first-line therapy with Revlimid and dexamethasone. By June 2016 he had good results. In July 2016 he moved to [facility] from [place]. He was followed by Dr. Reyez 1 hour, then Dr. [place], and most recently saw Gonzalo Aleksey July 12, 2019. He was started on Revlimid November 2018. He has pancytopenia with a low- grade anemia, mild low white cell count below 5000, and platelets. The goal was to maintain stability and as long as his kappa/lambda ratio and CBC remained relatively stable he was continued on his current regimen. Zometa was reinitiated with the July visit. The patient has a previous history of bilateral lower extremity edema. And he did have a PE involving the right segment of the lung diagnosed in December 2015. W hen he first met Dr. Reyez our in 2016 he was on Coumadin but has not been on Coumadin since 2017. Echocardiogram September 16, 2016 showed left ventricular systolic function of 60 to 65%. Mild increased left atrial volume index. Mildly abnormal heart pressures. No atrial shunt seen. He was also admitted for chest pain July 2017. CT a of the chest was done at that admission and there were no PE. He did have some emphysema. Cardiac stress test done August 11, 2017 with adenosine showed no acute ST-T wave changes. The myocardial perfusion images showed a moderate sized focus of mildly increased activity in the inferior wall extending inferolateral, from apex to base, fixed on stress and rest. [place] to be a nontransmural infarct. Otherwise uniform activity in the left ventricle myocardium. Ejection fraction 71%. He now presents to our emergency room with a 3 days of cough and shortness of breath. Not necessarily any fever. He has had decreased appetite but no chest pain like he did 07/2017. Watery diarrhea stated yesterday. Phlegm is solorio colored. No hemoptysis. He has severe coughing, and the coughing has resulted in chest wall pain and hypogastric stabbing abdominal wall pain. A bruise started early this am and has extended from around the umbilicus to suprapublic area and down into intertriginous folds, scrotum. It really hurts to touch this area. Last night he was so tired that when he got up out of bed, he fell. He does not know what happened but he stood up, and the next thing he knows he is landing on top of the nightstand on his side of the bed and he bruised his right hand, hit his forehead, and hurt his anterior chest wall. In the emergency room temperature was 36.7 heart rate was 94, respiratory rate 22, blood pressure 128/81 and his O2 sat was 91% on room air. Initially he was sinus rhythm on telemetry but he has had intermittent bursts of atrial fibrillation. Toward the end of his visit in the emergency room he is remained in atrial fibrillation. Dr. Iyer obtain a chest x-ray which was negative for pneumonia. However no troponin or CT angiogram was done. CT angiogram was not done because of a subtle worsening of his creatinine over time. The lowest his creatinine has been in the past is 1.0. With today's visit he is 1.8. GFR is 36.Today's hemoglobin is 8.6. This gentleman has had a gradually worsening anemia over the years. When he was first in our system his hemoglobin was 13.7. That was in 2017. In 2017 he remained stable in 2018 he went to 11.5. By the June 2019 he was 10.4. Today he is 8.6. He is trace positive hemoglobin in the emergency room on rectal exam but that is more due to diarrhea and rectal excoriation than true GI bleed. The patient denies any hematochezia or melena. He is on pantoprazole, and has intermittent steroids. But he does not take nonsteroidals. He denies any epigastric pain. History - Past Medical History Cardiovascular: reports: Hypertension, High cholesterol, Pulmonary embolism Respiratory: reports: None Neuro: reports: TIA (TIA September 2016. MRI showed age-appropriate senescent changes. Chronic microangiopathy. No acute findings. Angiogram was unremarkable for neck or head. 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 He had hyperlipidemia hypertension and an IN. Mother at age 63 of suicide. Brother of IN and also had coronary artery disease, hyperlipidemia, hypertension. One son and one daughter healthy. Living arrangement: At home Living Situation: With spouse/s.o. Social History Notes: He is a former smoker that quit approximately 1984. Started at the age of 24 and smoked half a pack per day. Does not have any history of alcohol abuse. He was born and raised in [place]. 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 to his first for close to 64 years now. [place]. [place] here in 2017 to be close to their daughter who is a retired nurse on the [place]. 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 - Substance History Use: Uses substance without health or social issues: NONE Abuse: Recurrent use of substance despite neg consequences: NONE Dependence: Experiences withdrawal or developed tolerances: NONE - POLST Patient has POLST: No POLST Status: DNR Meds/Allgy - Home Medications Home Medications: Ambulatory Orders Medication Instructions Recorded Confirmed Acetaminophen [Tylenol] 500 mg PO PRN PRN 07/29/16 07/12/19 Psyllium Husk [Metamucil] 2 cap PO DAILY 07/29/16 07/12/19 allopurinoL [Allopurinol] 300 mg PO DAILY 07/29/16 07/12/19 lisinopriL [Lisinopril] 10 mg PO BID 09/23/16 07/12/19 Atorvastatin [Lipitor] 20 mg PO QPM 11/18/16 07/12/19 Brimonidine 0.15% Ophth Drops 1 drops EACHEYE DAILY 01/07/17 07/12/19 [Alphagan P 0.15% Ophth Drops] Latanoprost 1 drops EACHEYE QPM 01/07/17 07/12/19 Clopidogrel [Plavix] 75 mg PO DAILY 07/21/17 07/12/19 Multivitamin [Theragran] 1 tab PO DAILY 07/21/17 07/12/19 Nitroglycerin [Nitrostat] 0.4 mg SL Q5MIN PRN #100 tablet 07/21/17 07/12/19 Gabapentin 300 mg ORAL QPM PRN 02/17/18 07/12/19 Pantoprazole Sodium [Protonix] 40 mg PO DAILY 11/09/18 07/12/19 Prednisone 5 mg PO DAILY 11/30/18 07/12/19 Lenalidomide [Revlimid] 15 mg ORAL DAILY 02/28/19 07/12/19 Amoxicillin 500 mg PO DAILY 04/12/19 07/12/19 Metoprolol Succinate 50 mg PO DAILY 04/12/19 07/12/19 Albuterol Sulf [Ventolin Hfa 1 - 2 puffs INH Q4HR PRN #1 inhaler 06/09/19 07/12/19 Inhaler] Azithromycin [Zithromax] 250 mg PO DAILY #4 tablet 06/09/19 07/12/19 - Allergies Allergies/Adverse Reactions: Allergies Allergy/AdvReac Type Severity Reaction Status Date / Time No Known Drug Allergies Allergy Verified 07/12/19 16:05 Review of Systems - Constitutional Constitutional: reports: Fatigue, Poor appetite - Eyes Eyes: denies: Pain, Irritation, Amaurosis, Blurred vision - Ears, Nose & Throat Ears, Nose & Throat: reports: Hearing loss, Hoarseness. denies: Hearing aids - Cardiovascular Cariovascular: reports: Palpitations, Chest pain (musculoskeletal from cough), Edema (chronic), Exertional dyspnea, Decr. exercise tolerance - Respiratory Respiratory: reports: Cough, Sputum production, SOB at rest, SOB with exertion - Gastrointestinal Gastrointestinal: reports: Diarrhea (for the last day). denies: Abdominal pain, Abdominal distention, Constipation, Black stools, Bloody stools, Bile emesis, Lencho blood emesis, Coffee grounds emesis, Reflux/heartburn - Genitourinary Genitourinary: reports: Urgency, Nocturia - Musculoskeletal Musculoskeletal: reports: Muscle pain, Gout, Joint pain - Integumentary Integumentary: reports: Rash (with pamindronate). denies: Pruritis - Neurological Neurological: reports: General weakness. denies: Focal weakness, Headache, Dizziness - Endocrine Endocrine: denies: Polyuria, Polydypsia, Polyphagia - Hematologic/Lymphatic Hematologic/Lymphatic: reports: Anemia, Bruising. denies: Lymphadenopathy Prior Level of Functionality: As he is gotten older he has the energy to do less and less. But he still ambulatory and does not use any durable medical equipment. He still drives, pays bills. He dresses himself feeds himself. Exam - Vital Signs Reviewed Vital Signs: Yes Vital Signs: Vital Signs x48h Temp Pulse Resp BP Pulse Ox 08/22/19 23:39 74 16 112/74 96 08/22/19 23:22 107 H 16 118/74 97 08/22/19 22:51 125 H 29 H 138/104 H 95 08/22/19 22:07 84 13 141/69 H 96 08/22/19 20:34 87 16 144/86 H 99 08/22/19 19:28 36.7 C 94 22 128/81 H 91 L - Physical Exam General Appearance: positive: No acute distress, Alert, Other (Very fatigued appearing elderly gentleman with faint bilateral black eyes. An abrasion in the mid forehead going into his hairline.) Eyes Bilateral: positive: PERRL, Other (Sclera injected, and bilateral lower eyelids with black eyes. Eyes sunken into the orbits.) ENT: positive: Dry mucous membranes, Other (Hoarse voice. Has to constantly clear his throat when he is talking to me.) Neck: positive: No JVD, Lymphadenopathy (R) (Shotty), Lymphadenopathy (L) (Shotty). negative: Stiff neck, Carotid bruit Respiratory: positive: Chest non-tender, No respiratory distress, Rhonchi, Other (Comfortable respiration. No increased respiratory effort. No coughing spasms during my exam. No use of accessory muscles.). negative: Wheezes, Rales Cardiovascular: positive: Irregularly irregular, Systolic murmur. negative: Gallop/S4, Friction rub Peripheral Pulses: positive: 1+ Abdomen: positive: No organomegaly, Nml bowel sounds, No distention, Other (The umbilicus is surrounded by a bruise that is the size of the palm of my hand, and the bruise extends in the hypogastric region into the suprapubic area, intertriginous folds and into the scrotum. The bruise in the suprapubic area and intertriginous fold area is tender.). negative: Guarding, Rebound Skin: positive: Warm, Dry, Pallor Extremities: positive: Non-tender, Pedal edema (Edema extends from the feet all the way above the knees. Bilateral and symmetrical with physical exam findings of chronic venous stasis changes). negative: Joint swelling, Roma's sign/cords Neurologic/Psychiatric: positive: Oriented x3, CN's nml (2-12) (Accept moderately deaf), Motor nml (Except for generalized weakness. Standing causes him to get lightheaded and he has to sit back down again.) Conclusion/Plan - Problem List (1) Shortness of breath Conclusion/Plan: In this elderly gentleman, the shortness of breath is multifactorial. He has multiple myeloma with a chronic condition that leaves and fatigue. But in reading his notes from his oncologist his baseline has been relatively stable for the last year as this indolent diseases run its course. At this time differential diagnosis could include Anemia, new atrial fibrillation, IN, PE, pneumonia, congestive heart failure.His chest x-ray is negative for acute infiltrate in spite of his history of being positive for new cough, productive of galvan phlegm. Accompanied by diarrhea. This leads me to suspect he may have atypical bronchitis/pneumonitis. Plan: Observation status Check troponin that I have asked Dr. Iyer to order. And check another set of troponins in 5 to 6 hours. VQ scan in the morning. His creatinine prohibits us from doing a CT angiogram tonight. IV fluids Type and screen for blood. He has a history of IN and coronary artery disease. He is eligible for transfusion if his hemoglobin drops below 8. Empiric p.o. azithromycin with probiotic. (2) New onset atrial fibrillation Conclusion/Plan: With a history of pulmonary embolism as well as transmural infarct on a stress test from 2018. Plan: Check TSH. Check troponins. Echocardiogram. Check V/Q scan Lovenox 30 mg for renal dose adjustment. Resume beta hussein for rate control and while rulling out IN. (3) Acute on chronic anemia Conclusion/Plan: This is not felt to be blood loss anemia, acute or otherwise. He does have fecal occult blood positive stool but has been having diarrhea and his rectum is irritated. We think he is positive from that. In addition, he has a new painful bruise of his anterior abdominal wall that may be a rectus sheath hematoma. Plan: Recheck hemoglobin in the morning, type and screen for 2 units of blood and transfuse if he drops below 8. Source of his anemia would be the multiple myeloma he has plus the hematoma. Start proton pump inhibitor. Although there is no melena or hematochezia, he is not on nonsteroidals, where to make sure he does not have slow leaking from gastric ulcer disease. (4) Acute worsening of stage 3 chronic kidney disease Conclusion/Plan: He may be dehydrated with prerenal azotemia. Anemia may be contributing to this as well. He has had diarrhea today. Plan: IV fluids. Monitor creatinine daily Avoid nephrotoxic medication (allopurinol dosing should be adjusted) (5) Multiple myeloma Conclusion/Plan: Is on a stable treatment plan with stable disease. Low-grade pancytopenia noted. He is on Revlimid and steroids and Zometa. Those will be continued with follow-up per his oncologist, currently Dr. Ryder. Qualifiers: Multiple myeloma remission status: not in remission Qualified Code(s): C90.00 - Multiple myeloma not having achieved remission (6) Diarrhea Conclusion/Plan: Check stool culture Qualifiers: Diarrhea type: presumed infectious Qualified Code(s): R19.7 - Diarrhea, unspecified - Lab Results Lab results reviewed: Yes Fish Bones: 08/22/19 21:22 08/22/19 21:22 - Diagnostic Imaging Results Diagnostic Imaging Results: positive: Final report reviewed - EKG Results EKG Interpreted Independently: No EKG Comparison: Old EKG unavailable Core Measures - Anticipated LOS I expect patient to be DC'd or transferred within 96 hours.: Yes - DVT/VTE - Prophylaxis VTE/DVT Device ordered at admit?: Yes
[2019-08-23] MEDS ORDERED: ACETAMINOPHEN 325 MG TABLET PO PRN (01:09)
[2019-08-23] MEDS ORDERED: ONDANSETRON 4 MG/2 ML VIAL IVP PRN (01:09)
[2019-08-23] MEDS ORDERED: ONDANSETRON ODT 4 MG TABLET TL PRN (01:09)
[2019-08-23] MEDS ORDERED: oxyCODONE 5 MG TABLET PO PRN (01:09)
[2019-08-23] MEDS ORDERED: PANTOPRAZOLE 40 MG VIAL IVP SCH (01:12)
[2019-08-23] MEDS ORDERED: ENOXAPARIN 40 MG/0.4 ML SYRINGE SUBQ STA (01:32)
[2019-08-23] MEDS ORDERED: METOPROLOL 5 MG/5 ML VIAL IVP PRN (01:46)
[2019-08-23] MEDS ORDERED: SODIUM CHLORIDE 0.9% 1,000 ML IV SCH (02:00)
[2019-08-23] MEDS ORDERED: AZITHROMYCIN 250 MG TABLET PO STA (02:34)
[2019-08-23] MEDS: METOPROLOL SUCCINATE 25 MG TABLET PO SCH ×2 (02:34→08:09)
[2019-08-23] MEDS ORDERED: guaiFENesin/CODEINE 5 ML UDC PO PRN (02:35)
[2019-08-23] MEDS: SODIUM CHLORIDE FLUSH 0.9% 10 ML SYRINGE IVP PRN ×2 (03:40→06:37)
[2019-08-23] MEDS: MORPHINE 2 MG/ML CARPUJECT IVP PRN ×2 (03:40→06:36)
[2019-08-23] MEDS ORDERED: SACCHAROMYCES BOULARDII 250 MG CAPSULE PO SCH (08:00)
[2019-08-23 08:33] VITALS: BP 99/67
[2019-08-23] MEDS ORDERED: SODIUM CHLORIDE FLUSH 0.9% 10 ML SYRINGE IVP SCH (09:00)
--- NOTE | 2019-08-23 10:24 | Ultrasound Report ---
Reason: BLE swelling Procedure Date: 08/23/2019 Accession Number: [id number] / [id number] Procedure: US - Duplex Ext Veins Bilateral CPT Code: Final Report FULL RESULT: EXAM: BILATERAL LOWER EXTREMITY VENOUS ULTRASOUND EXAM DATE: 08/23/2019 09:01 AM. CLINICAL HISTORY: Bilateral lower extremity swelling. COMPARISON: None. TECHNIQUE: Real-time sonographic vascular imaging was performed by the private inquiry agent through the lower extremities utilizing both color-flow and Doppler spectral analysis. Multiple patient representative static images were saved for review. FINDINGS: Right: Common Femoral Vein (CFV): Normal. CFV-GSV Junction: Normal. Profunda Femoral Vein (PFV): Normal. Femoral Vein (FV) Prox: Normal. Femoral Vein (FV) Mid: Normal. Femoral Vein (FV) Dist: Normal. Popliteal Vein: Normal. Posterior Tibial Veins: Normal. Peroneal Veins: Normal. Left: Common Femoral Vein (CFV): Nonocclusive thrombus. CFV-GSV Junction: Normal. Profunda Femoral Vein (PFV): Occlusive thrombus. Femoral Vein (FV) Prox: Normal. Femoral Vein (FV) Mid: Nonocclusive thrombus. Femoral Vein (FV) Dist: Occlusive thrombus. Popliteal Vein: Partially thrombosed. Posterior Tibial Veins: Occlusive and nonocclusive thrombus. Peroneal Veins: Occlusive thrombus. Other: None. IMPRESSION: Extensive left-sided deep venous thrombosis. CRITICAL RESULT: The findings were discussed with Barb Mullen on 08/23/2019 at 10:20 AM. MAGDY
[2019-08-23] MEDS ORDERED: LEVALBUTEROL 1.25 MG/3 ML NEB INH PRN (10:56)
[2019-08-23 11:15] LABS: HGB - HEMOGLOBIN 8.4 g/dL (14.0-18.0); MEAN CORPUSCULAR HEMOGLOBIN 30.1 pg (27.0-31.0); MEAN CORPUSCULAR HGB CONC 31.9 g/dL (32.0-36.0); MEAN CORPUSCULAR VOLUME 94.3 fL (80.0-94.0); MEAN PLATELET VOLUME 9.7 fL (7.4-11.4); NEUTROPHILS # (AUTO) 1.9 10^3/uL (1.5-6.6); RED BLOOD COUNT 2.79 10^6/uL (4.70-6.10); RED CELL DISTRIBUTION WIDTH 14.6 % (12.0-15.0); WHITE BLOOD COUNT 3.2 x10^3/uL (4.8-10.8)
[2019-08-23 11:29] LABS: ALBUMIN 2.9 g/dL (3.2-5.5); ALBUMIN/GLOBULIN RATIO 1.3 (1.0-2.2); BILIRUBIN,TOTAL 0.9 mg/dL (0.2-1.0); CALCIUM 7.5 mg/dL (8.5-10.3); CREATININE 1.8 mg/dL (0.6-1.2); TOTAL PROTEIN 5.2 g/dL (6.7-8.2)
--- NOTE | 2019-08-23 12:04 | Discharge Plan ---
Discharge Plan Problem Reviewed?: Yes Disposition: 02 Transfer Acute Care Hosp Condition: Stable Diet: Regular No Smoking: If you smoke, Please STOP! Call for help. Follow-up with: Tristan Pepe MD [Primary Care Provider] -
--- NOTE | 2019-08-23 12:28 | DISCHARGE SUMMARY ---
Discharge Summary Admit Date: 08/23/19 Discharge Date: 08/23/19 Discharging Provider: IVAN Steve Primary Care Provider: Tristan Pepe Code Status: Do Not Attempt Resuscitation Condition at Discharge: Stable Discharge Disposition: 02 Transfer Acute Care Hosp Discharge Facility Name: [facility]-Dr. Dinesh Blunt - DIAGNOSES Admission Diagnoses: Shortness of breath New onset atrial fibrillation Left DVT History of pulmonary embolism Acute on chronic anemia Acute renal failure superimposed on stage 3 chronic kidney disease Multiple myeloma Discharge Diagnoses with Status of Each Condition: Shortness of breath-Present on admission, started 3 days prior to patient coming to the ED, now requiring oxygen, stable New onset atrial fibrillation-Rates more controlled in the 80-90's since getting oral metoprolol, stable Left leg DVT-New finding today, likely will need an IVC filter, transfer to [facility] for a higher level of care Abdominal hematoma-Needs further work up, may be a barrier to anticoagulation Acute respiratory failure with hypoxia-New on this admission, no confusion, shallow breaths, suspect due to probable pulmonary emboli since having a left DVT, requiring 2L oxygen per nasal cannula, also with orthopnea, most comfortable sitting up, stable History of pulmonary embolism-December of 2016, status post Coumadin, remains on Plavix Acute on chronic anemia-Baseline hemoglobin was 10-12, now 8.4, suspected from acute abdominal hematoma, GI source, or accumulation of clots burden, left DVT, probable PEs, stable Acute renal failure superimposed on stage 3 chronic kidney disease-Serum creatinine remains elevated at 1.8, results today at 11:11, baseline ~1.4, no imaging contrast used, avoided nephrotoxins, stable Multiple myeloma-Chronic, ongoing treatment with Revlimid, denis Ryder MD oncology at [facility] Diarrhea-Started a few days ago, stable Hypertension-Chronic, stable Hyperlipidemia-Chronic, stable History of TIA-Chronic, no neuro changes today, stable BPH-Chronic, stable Depression-Chronic, stable Gout-Chronic, stable Current chronic use of systemic steroids-Chronic, stable, remains with extremity discoloration, easy to bruise, now with an abdominal hematoma, stable - HPI History of Present Illness: HPI per Dr. Gudelia Hanks: This elderly patient has been anemic and was initially evaluated in February 2007 for that. At that time he had an abnormal electrophoresis with a paraprotein spike of 2.5 g that was an IgG kappa type. He was diagnosed as multiple myeloma and has received treatment with melphalan, prednisone and thalidomide. Worsening lytic lesions in 2007 resulted in starting on pamidronate. That was changed to Zometa because of rash. In 2011 he had increased plasma cells and he was started on Velcade and dexamethasone. He continued to have progression by February 2014 and he was placed in the clinical study with car fill Xomed and dexamethasone. He had a dose reduction because of pulmonary toxicity and restless legs. Progression of his disease in September 2015 resulted in first-line therapy with Revlimid and dexamethasone. By June 2016 he had good results. In July 2016 he moved to [facility] from [place]. He was followed by Dr. Reyez 1 hour, then Dr. [place], and most recently saw Gonzalo Ryder July 12, 2019. He was started on Revlimid November 2018. He has pancytopenia with a low-grade anemia, mild low white cell count below 5 000, and platelets. The goal was to maintain stability and as long as his kappa/lambda ratio and CBC remained relatively stable he was continued on his current regimen. Zometa was reinitiated with the July visit. The patient has a previous history of bilateral lower extremity edema. And he did have a PE involving the right segment of the lung diagnosed in December 2015. When he first met Dr. Reyez our in 2016 he was on Coumadin but has not been on Coumadin since 2016. Echocardiogram September 16, 2016 showed left ventricular systolic function of 60 to 65%. Mild increased left atrial volume index. Mildly abnormal heart pressures. No atrial shunt seen. He was also admitted for chest pain July 2017. CT a of the chest was done at that admission and there were no PE. He did have some emphysema. Cardiac stress test done August 11, 2017 with adenosine showed no acute ST-T wave de anda ges. The myocardial perfusion images showed a moderate sized focus of mildly increased activity in the inferior wall extending inferolateral, from apex to base, fixed on stress and rest. [place] to be a nontransmural infarct. Otherwise uniform activity in the left ventricle myocardium. Ejection fraction 71%. He now presents to our emergency room with a 3 days of cough and shortness of breath. Not necessarily any fever. He has had decreased appetite but no chest pain like he did 07/2017. Watery diarrhea stated yesterday. Phlegm is solorio colored. No hemoptysis. He has severe coughing, and the coughing has resulted in chest wall pain and hypogastric stabbing abdominal wall pain. A bruise s tarted early this am and has extended from around the umbilicus to suprapublic area and down into intertriginous folds, scrotum. It really hurts to touch this area. Last night he was so tired that when he got up out of bed, he fell. He does not know what happened but he stood up, and the next thing he knows he is landing on top of the nightstand on his side of the bed and he bruised his right hand, hit his forehead, and hurt his anterior chest wall. In the emergency room temperature was 36.7 heart rate was 94, respiratory rate 22, blood pressure 128/81 and his O2 sat was 91% on room air. Initially he was sinus rhythm on telemetry but he has had intermittent bursts of atrial fibrillation. Toward the end of his visit in the emergency room he is remained in atrial fibrillation. Dr. Iyer obtain a chest x-ray which was negative for pneumonia. However no troponin or CT angiogram was done. CT angiogram was not done because of a subtle worsening of his creatinine over time. The lowest his creatinine has been in the past is 1.0. With today's visit he is 1.8. GFR is 36.Today's hemoglobin is 8.6. This gentleman has had a gradually worsening anemia over the years. When he was first in our system his hemoglobin was 13.7. That was in 2017. In 2018 he remained stable in 2018 he went to 11.5. By the June 2019 he was 10.4. Today he is 8.6. He is trace positive hemoglobin in the emergency room on rectal exam but that is more due to diarrhea and rectal excoriation than true GI bleed. The patient denies any hematochezia or melena. He is on pantoprazole, and has intermittent steroids. But he does not take nonsteroidals. He denies any epigastric pain. - HOSPITAL COURSE Hospital Course: The patient had an uneventful morning since being admitted, but shortly after breakfast he complained of more shortness of breath, cough, and required 2L oxygen per nasal cannula with a Xopenex treatment. He remained in atrial fibrillation with rates 100-120s, which improved after an oral metoprolol to rates in the 80-90s. Serial troponins were checked, which remained flat at 31.4, 30.5, & 31.7 (high sensitivity). Rapid influenza testing was negative, H/H remained stable with the last set resulting at 11:11AM today at 8.4/26.3. Once obtaining results from the BLE duplex Doppler of a left DVT, [facility] was called for a potential transfer with Dr. Dinesh Blunt accepting Hospitalist. I spoke with Dr. Jesus Garcia with IR at [facility] who also deemed this transfer appropriate with the patient needing a probable IVC filter. No further imaging was obtained such as a VQ scan or abdominal imaging as the patient has baseline CKD. The patients family, -Omayra, and daughter-Kasia were also given a medical update prior to the patients departure. The patient was medically stable at the time of transport. - ALLERGIES Allergies/Adverse Reactions: Allergies Allergy/AdvReac Type Severity Reaction Status Date / Time No Known Drug Allergies Allergy Verified 07/12/19 16:05 - MEDICATIONS Home Medications: Ambulatory Orders Medication Instructions Recorded Confirmed Acetaminophen [Tylenol] 500 mg PO PRN PRN 07/29/16 07/12/19 Psyllium Husk [Metamucil] 2 cap PO DAILY 07/29/16 07/12/19 allopurinoL [Allopurinol] 300 mg PO DAILY 07/29/16 07/12/19 lisinopriL [Lisinopril] 10 mg PO BID 09/23/16 07/12/19 Atorvastatin [Lipitor] 20 mg PO QPM 11/18/16 07/12/19 Brimonidine 0.15% Ophth Drops 1 drops EACHEYE DAILY 01/07/17 07/12/19 [Alphagan P 0.15% Ophth Drops] Latanoprost 1 drops EACHEYE QPM 01/07/17 07/12/19 Clopidogrel [Plavix] 75 mg PO DAILY 07/21/17 07/12/19 Multivitamin [Theragran] 1 tab PO DAILY 07/21/17 07/12/19 Nitroglycerin [Nitrostat] 0.4 mg SL Q5MIN PRN #100 tablet 07/21/17 07/12/19 Gabapentin 300 mg ORAL QPM PRN 02/17/18 07/12/19 Pantoprazole Sodium [Protonix] 40 mg PO DAILY 11/09/18 07/12/19 Prednisone 5 mg PO DAILY 11/30/18 07/12/19 Lenalidomide [Revlimid] 15 mg ORAL DAILY 02/28/19 07/12/19 Amoxicillin 500 mg PO DAILY 04/12/19 07/12/19 Metoprolol Succinate 50 mg PO DAILY 04/12/19 07/12/19 Albuterol Sulf [Ventolin Hfa 1 - 2 puffs INH Q4HR PRN #1 inhaler 06/09/19 07/12/19 Inhaler] Azithromycin [Zithromax] 250 mg PO DAILY #4 tablet 06/09/19 07/12/19 - PHYSICAL EXAM AT DISCHARGE General Appearance: positive: Alert, Moderate distress, Anxious Eyes Bilateral: negative: Conjunctivae nml (scleral erythema, dry eyes bilaterally) ENT: positive: Pharyngeal erythema, Dry mucous membranes Neck: positive: Trachea midline, Stiff neck Cardiovascular: positive: Irregularly irregular, Tachycardia, JVD present, Systolic murmur, Decreased pulse(s) Peripheral Pulses: positive: 1+ Abdomen: positive: Guarding, Abnml bowel sounds, Other (deep purple bruising noted on low mid abdomen, tenerness, hypoactive bowel sounds) Back: positive: Nml inspection Skin: positive: No rash, Warm, Dry, Other (scattered bruising, skin discoloration due to chronic prednisone use, right AC bruising from lab draw) Extremities: positive: Pedal edema, Joint swelling, Other (+ left DVT, BLE swelling, pitting edema, ANDREA hose on) Neurologic/Psychiatric: positive: Oriented x3, CN's nml (2-12), Weakness, Sensory loss, Depressed mood/affect (flat affect, no confusion) Reflexes: Bicep (R): 3+, Bicep (L): 3+, Ankle (R): 3+, Ankle (L): 3+ - LABS Result Diagrams: 08/23/19 11:11 08/23/19 11:11 - FOLLOW UP Follow Up: Follow up with PCP within one week of [facility] discharge, see Oncology as scheduled. - TIME SPENT Time Spent in Discharge (Minutes): 55
[2019-08-23] MEDS ORDERED: AZITHROMYCIN 250 MG TABLET PO SCH (21:00)
[2019-08-24] MEDS ORDERED: PANTOPRAZOLE 40 MG VIAL IVP SCH (07:00)
== END 2019-08-23 12:34 | disposition short-term general hospital (02) ==
LOC: ED 19:25 → MS2 08-23 01:09
PROVIDERS: ADMIT Specialist; ATTEND Specialist
DX: I48.91 Unspecified atrial fibrillation (principal); J96.01 Acute respiratory failure with hypoxia; I82.412 Acute embolism and thrombosis of left femoral vein; I82.432 Acute embolism and thrombosis of left popliteal vein; I82.452 Acute embolism and thrombosis of left peroneal vein; D61.818 Other pancytopenia; N17.9 Acute kidney failure, unspecified; I12.9 Hypertensive chronic kidney disease with stage 1 through stage 4 chronic kidney disease, or unspecified chronic kidney disease; N18.3 Chronic kidney disease, stage 3 (moderate); C90.00 Multiple myeloma not having achieved remission; R19.7 Diarrhea, unspecified; S30.1XXA Contusion of abdominal wall, initial encounter; X58.XXXA Exposure to other specified factors, initial encounter; J43.9 Emphysema, unspecified; F32.9 Major depressive disorder, single episode, unspecified; E78.5 Hyperlipidemia, unspecified; N40.1 Benign prostatic hyperplasia with lower urinary tract symptoms; R35.1 Nocturia; R39.15 Urgency of urination; L27.0 Generalized skin eruption due to drugs and medicaments taken internally; T45.8X5A Adverse effect of other primarily systemic and hematological agents, initial encounter; H40.9 Unspecified glaucoma; M10.9 Gout, unspecified; H91.90 Unspecified hearing loss, unspecified ear; Z66 Do not resuscitate; Z79.02 Long term (current) use of antithrombotics/antiplatelets; Z79.52 Long term (current) use of systemic steroids; Z79.51 Long term (current) use of inhaled steroids; Z79.899 Other long term (current) drug therapy; I25.2 Old myocardial infarction; Z87.891 Personal history of nicotine dependence; Z86.73 Personal history of transient ischemic attack (TIA), and cerebral infarction without residual deficits; Z86.711 Personal history of pulmonary embolism; Z86.718 Personal history of other venous thrombosis and embolism; Z87.898 Personal history of other specified conditions; Z89.029 Acquired absence of unspecified finger(s)
CPT/HCPCS: 36415; 71046; 80053; 83690; 83880; 84484; 85025; 85027; 85610; 85730; 86850; 86900; 86901; 87275; 87276; 93005; 93306; 93970; 96361; 96372; 96374; 96375; 99284; 99285; A9270; G0378; J1650

== ENCOUNTER 2019-08-23 12:15 | Outpatient (CLI) | payer MEDICARE | END 2019-08-23 12:16 | disposition short-term general hospital (02) | LOC: EMS 12:15 | PROVIDERS: ATTEND Surgery | DX: I48.91 Unspecified atrial fibrillation (principal); I82.402 Acute embolism and thrombosis of unspecified deep veins of left lower extremity; R10.9 Unspecified abdominal pain | CPT/HCPCS: A0425; A0429 ==

== ENCOUNTER 2019-12-27 16:03 | Outpatient (CLI) | payer MEDICARE ==
--- NOTE | 2019-12-28 11:07 | Ultrasound Report ---
PROCEDURE: Duplex Ext Veins Bilateral INDICATIONS: [place]ALO VALERA TECHNIQUE: Real-time imaging, as well as color and pulse Doppler interrogation, were performed of the deep veins of both legs from the inguinal ligament to the popliteal fossa. COMPARISON: FINDINGS: The deep veins The right lower extremity are normally compressible, and free of intraluminal thrombus. Color and pu lse Doppler demonstrate normal phasic intravascular flow. There is normal augmentation response to d istal compression maneuver. Occlusive thrombus is visualized within the common femoral vein and the proximal left profunda. No au gmentation with compression within the patent regions of the left superficial femoral vein were obtai beatriz. Occlusive thrombus is present within the left peroneal vein. There is a 4.2 x 1.3 x 2.3 cm left popliteal fossa fluid collection which has a septated appearance. No internal vascularity. IMPRESSION: 1. No deep vein thrombosis of the right lower extremity. 2. Deep vein thrombosis within the left common femoral vein and profunda vein. 3. Deep vein thrombosis within the left peroneal vein. Reviewed by: Blanquita Egan MD on 12/28/2019 11:06 AM PDT Approved by: Blanquita Egan MD on 12/28/2019 11:06 AM PDT Station ID: [id number]
== END 2019-12-27 16:04 | disposition home or self-care (01) ==
LOC: DI 16:03
PROVIDERS: ATTEND Internal Medicine
DX: I82.412 Acute embolism and thrombosis of left femoral vein (principal); I82.452 Acute embolism and thrombosis of left peroneal vein; C90.00 Multiple myeloma not having achieved remission
CPT/HCPCS: 93970

== ENCOUNTER 2020-01-30 15:14 | Outpatient (CLI) | payer MEDICARE ==
--- NOTE | 2020-01-31 06:06 | XRAY Report ---
PROCEDURE: Cervical Spine 2 View INDICATIONS: CERVICALIA TECHNIQUE: 4 view(s) of the cervical spine were acquired. COMPARISON: None. FINDINGS: Bones: No fractures or dislocations to the T1 level. The lateral masses of C1 appear intact on the odontoid view. No suspicious bony lesions. There is degenerative disc disease that is mild in severi ty superiorly, moderate at the middle third of the cervical spine, and moderately severe over the low er third. No trauma is found. Soft tissues: No prevertebral soft tissue swelling. IMPRESSION: The degree of degenerative changes over the lower third of the cervical spine is moderat priscilla severe to the degree that significant spinal and foraminal stenosis may be present. Depending on the clinical status follow-up by MR scanning may be warranted. No trauma. Reviewed by: Alexander Khoury MD on 01/31/2020 6:05 AM PDT Approved by: Alexander Khoury MD on 01/31/2020 6:05 AM PDT Station ID: [id number]
== END 2020-01-30 15:15 | disposition home or self-care (01) ==
LOC: DI 15:14
PROVIDERS: ATTEND Family Medicine
DX: M50.320 Other cervical disc degeneration, mid-cervical region, unspecified level (principal)
CPT/HCPCS: 72040

== ENCOUNTER 2020-03-23 11:57 | Emergency (ER) | payer MEDICARE ==
--- NOTE | 2020-03-23 12:48 | ED Physician Documentation ---
PD HPI UPPER EXT INJURY - Stated complaint Stated Complaint: R HAND SWELLING - Chief complaint Chief Complaint: Ext Problem - History obtained from History obtained from: Patient - Additonal information Additional information: 89-year-old gentleman on Revlimid for multiple myeloma developed painful swelling mostly of the dorsum of the right hand without specific injury or occurrence. It started yesterday. There is no associated fevers or chills. Review of Systems Constitutional: reports: Reviewed and negative Ears: reports: Reviewed and negative Nose: reports: Reviewed and negative Throat: reports: Reviewed and negative PD PAST MEDICAL HISTORY - Past Medical History Cardiovascular: Hypertension, High cholesterol, Pulmonary embolism Respiratory: None Neuro: TIA (TIA September 2016. MRI showed age-appropriate senescent changes. Chronic microangiopathy. No acute findings. Angiogram was unremarkable for neck or head. There is a origin of the right TILE GRADER.) Endocrine/Autoimmune: None GI: None : Benign prostate hypertrophy, Other HEENT: Glaucoma Psych: Depression Musculoskeletal: Gout Derm: None - Past Surgical History Past Surgical History: Yes Ortho: Amputation, Other HEENT: Cataracts - Present Medications Home Medications: Ambulatory Orders Medication Instructions Recorded Confirmed Acetaminophen [Tylenol] 500 mg PO PRN PRN 07/29/16 03/13/20 Psyllium Husk [Metamucil] 2 cap PO DAILY 07/29/16 03/13/20 allopurinoL [Allopurinol] 300 mg PO DAILY 07/29/16 03/13/20 lisinopriL [Lisinopril] 10 mg PO BID 09/23/16 03/13/20 Brimonidine 0.15% Ophth Drops 1 drops EACHEYE DAILY 01/07/17 03/13/20 [Alphagan P 0.15% Ophth Drops] Latanoprost 1 drops EACHEYE QPM 01/07/17 03/13/20 Multivitamin [Theragran] 1 tab PO DAILY 07/21/17 03/13/20 Nitroglycerin [Nitrostat] 0.4 mg SL Q5MIN PRN #100 tablet 07/21/17 03/13/20 Gabapentin 300 mg ORAL QPM PRN 02/17/18 03/13/20 Pantoprazole Sodium [Protonix] 40 mg PO DAILY 11/09/18 03/13/20 Prednisone 5 mg PO DAILY 11/30/18 03/13/20 Lenalidomide [Revlimid] 15 mg ORAL DAILY 02/28/19 03/13/20 Metoprolol Succinate 75 mg PO DAILY 04/12/19 03/13/20 Albuterol Sulf [Ventolin Hfa 1 - 2 puffs INH Q4HR PRN #1 inhaler 06/09/19 03/13/20 Inhaler] guaiFENesin/CODEINE [Robitussin AC] 15 ml ORAL Q4HR PRN 08/31/19 03/13/20 Apixaban [Eliquis] 2.5 mg PO BID 09/15/19 03/13/20 Furosemide [Lasix] 40 mg PO DAILY 09/15/19 03/13/20 Apixaban [Eliquis] 5 mg PO Q12H #60 tablet 01/17/20 03/13/20 Cephalexin [Keflex] 500 mg PO Q6H #28 capsule 03/23/20 - Allergies Allergies/Adverse Reactions: Allergies Allergy/AdvReac Type Severity Reaction Status Date / Time No Known Drug Allergies Allergy Verified 03/23/20 12:10 - Social History Does the pt smoke?: No Smoking Status: Never smoker Does the pt drink ETOH?: No Does the pt have substance abuse?: No - Immunizations Immunizations are current?: Yes - POLST Patient has POLST: No POLST Status: DNR PD ED PE NORMAL - Vitals Vital signs reviewed: Yes - General General: Alert and oriented X 3, No acute distress - Extremities Extremities: Other (Dorsum of the hand is quite warm, seems centered over the radial carpals. He is able to make a fist and extend the fingers all the way but with some pain. Painless flexion and extension at the wrist. Painless passive motion of the right thumb.) - Neuro Neuro: Alert and oriented X 3, Normal speech Results - Vitals Vitals: Vital Signs - 24 hr 03/23/20 03/23/20 12:10 14:04 Temperature 36.6 C 36.7 C Heart Rate 75 78 Respiratory 16 20 Rate Blood Pressure 152/72 H 146/89 H O2 Saturation 100 100 Oxygen O2 Source Room air - Labs Labs: Laboratory Tests 03/23/20 03/23/20 12:59 13:00 WBC 5.3 RBC 3.10 L Hgb 9.5 L Hct 30.1 L MCV 97.1 H MCH 30.6 MCHC 31.6 L RDW 14.7 Plt Count 103 L MPV 10.2 Neut # (Auto) 3.6 Lymph # (Auto) 0.7 L [place] # (Auto) 1.0 Eos # (Auto) 0.0 Baso # (Auto) 0.0 Absolute Nucleated RBC 0.00 Nucleated RBC % 0.0 Sodium 136 Potassium 4.3 Chloride 99 L Carbon Dioxide 25 Anion Gap 12.0 BUN 25 H Creatinine 1.8 H Estimated GFR (MDRD) 36 L Glucose 118 H Calcium 9.1 - Rads (name of study) R hand XR Radiology: EMP read contemporaneously (Soft tissue swelling without acute changes, sclerosis of the navicular bone.) PD MEDICAL DECISION MAKING - ED course ED course: 89-year-old gentleman with swelling of the hand, atraumatic. The warmth is suggestive of a cellulitis. No fluctuant abscess. No limited range of motion to suggest a septic arthritis. The anemia and renal insufficiency are chronic looking at old labs. Departure - Departure Disposition: 01 Home, Self Care Clinical Impression: Cellulitis Qualifiers: Site of cellulitis: extremity Site of cellulitis of extremity: upper extremity Laterality: right Qualified Code(s): L03.113 - Cellulitis of right upper limb Condition: Good Record reviewed to determine appropriate education?: Yes Instructions: ED Infec Skin Cellulitis Prescriptions: Cephalexin [Keflex] 500 mg PO Q6H #28 capsule Comments: Recheck with your doctor on Wednesday, return for new or worsening symptoms. Discharge Date/Time: 03/23/20 14:04
[2020-03-23 13:03] LABS: BASOPHILS % (AUTO) 0.2 %; EOSINOPHILS % (AUTO) 0.6 %; HGB - HEMOGLOBIN 9.5 g/dL (14.0-18.0); LYMPHOCYTES # (AUTO) 0.7 10^3/uL (1.5-3.5); LYMPHOCYTES % (AUTO) 13.2 %; MEAN CORPUSCULAR HEMOGLOBIN 30.6 pg (27.0-31.0); MEAN CORPUSCULAR HGB CONC 31.6 g/dL (32.0-36.0); MEAN CORPUSCULAR VOLUME 97.1 fL (80.0-94.0); MEAN PLATELET VOLUME 10.2 fL (7.4-11.4); MONOCYTES % (AUTO) 18.2 %; NEUTROPHILS # (AUTO) 3.6 10^3/uL (1.5-6.6); PLT - PLATELET COUNT 103 10^3/uL (130-450); RED CELL DISTRIBUTION WIDTH 14.7 % (12.0-15.0); WHITE BLOOD COUNT 5.3 x10^3/uL (4.8-10.8)
[2020-03-23 13:12] LABS: CALCIUM 9.1 mg/dL (8.5-10.3); CREATININE 1.8 mg/dL (0.6-1.2)
--- NOTE | 2020-03-23 13:36 | XRAY Report ---
PROCEDURE: Hand 3 View RT INDICATIONS: hand swelling TECHNIQUE: 3 views of the hand(s) acquired. COMPARISON: None FINDINGS: Bones: No fractures or dislocations. Focal degenerative change is seen involving the carpometacarpal joint, with milder degenerative mack es seen elsewhere, including the distal interphalangeal joints. There is mild sclerosis seen involving the navicular bone. Soft tissues: Generalized soft tissue swelling is seen. IMPRESSION: Generalized soft tissue swelling is seen, without a cause of the swelling identified. Bony degenerative changes are seen, which are worst involving the first carpometacarpal joint. There is sclerosis seen involving the navicular bone. Please consider AVN. If clinically appropriate , please consider a dedicated wrist MRI for further evaluation, (assuming that there is no contraindi cation). Reviewed by: Patrice Garcia MD on 03/23/2020 12:35 PM YANET Approved by: Patrice Garcia MD on 03/23/2020 12:35 PM YANET Station ID: [id number]
[2020-03-23] MEDS ORDERED: cephALEXin 250 MG CAPSULE PO STA (13:55)
[2020-03-23 14:06] VITALS: BP 146/89
== END 2020-03-23 14:04 | disposition home or self-care (01) ==
LOC: ED 11:57
DX: L03.113 Cellulitis of right upper limb (principal); C90.00 Multiple myeloma not having achieved remission; M89.8X7 Other specified disorders of bone, ankle and foot; I73.9 Peripheral vascular disease, unspecified; Z86.711 Personal history of pulmonary embolism; Z86.73 Personal history of transient ischemic attack (TIA), and cerebral infarction without residual deficits; I12.9 Hypertensive chronic kidney disease with stage 1 through stage 4 chronic kidney disease, or unspecified chronic kidney disease; N18.9 Chronic kidney disease, unspecified; D63.1 Anemia in chronic kidney disease
CPT/HCPCS: 36415; 73130; 80048; 85025; 99283; 99284; A9270

== ENCOUNTER 2020-04-04 12:57 | Outpatient (CLI) | payer MEDICARE ==
--- NOTE | 2020-04-04 16:36 | Ultrasound Report ---
PROCEDURE: Duplex Ext Veins Bilateral INDICATIONS: History of deep vein thrombosis. TECHNIQUE: Real-time imaging, as well as color and pulse Doppler interrogation, were performed of the deep veins of both legs from the inguinal ligament to the popliteal fossa. COMPARISON: None FINDINGS: Isolated thrombus is noted in the origin of the left deep femoral vein. The deep veins of the right and left lower extremities otherwise are normally compressible, and free of intraluminal th rombus. Color and pulse Doppler demonstrate normal phasic intravascular flow. There is normal augme ntation response to distal compression maneuver. IMPRESSION: 1. No evidence of deep vein thrombosis involving the right lower extremity. 2. Isolated thrombus involving the left deep femoral vein. Left common femoral vein, superficial femo ral vein and popliteal vein are fully patent. Reviewed by: Alondra Smith MD, PhD on 04/04/2020 4:35 PM PDT Approved by: Alondra Smith MD, PhD on 04/04/2020 4:35 PM PDT Station ID: [id number]
== END 2020-04-04 12:58 | disposition home or self-care (01) ==
LOC: DI 12:57
PROVIDERS: ATTEND Internal Medicine
DX: I82.412 Acute embolism and thrombosis of left femoral vein (principal); I82.432 Acute embolism and thrombosis of left popliteal vein
CPT/HCPCS: 93970